=== PATIENT | female | born 1990 | race Caucasian/White ===

== ENCOUNTER 2021-11-22 01:47 | Emergency (ER) | payer OTHER, BC, SELFPAY ==
[2021-11-22 02:02] VITALS: BP 137/76; PULSE 105; RESP 18; TEMP 37.2; O2SAT 100
[2021-11-22 02:34] LABS: Add Urine Microscopic? YES; Appearance Urine Slightly Cloudy (Clear); Bilirubin Urine Negative (Negative); Blood Urine 3+ (Negative); Color Urine Light Yellow (Yellow); Glucose Urine UA Negative (Negative); Ketones Urine Negative (Negative); Leukocyte Esterase Ur 2+ LEU/UL (Negative); Nitrate Urine Negative (Negative); Protein Urine 1+ mg/dL (Negative); Urobilinogen Urine 0.2 mg/dL (<2.0); pH Urine 6.5 (5.0-9.0)
[2021-11-22 02:49] LABS: Bacteria Urine Trace /hpf; Squamous Epithelial Cell Urine Rare /hpf (Few); WBC Clumps Urine Present /HPF; WBC Urine >75 /hpf
--- NOTE | 2021-11-22 03:55 | ED.FEMALEGU ---
HPI - Female Genitourinary General Chief complaint: Urogenital-Female Stated complaint: uti symptoms Time Seen by Provider: 11/22/21 03:34 History of Present Illness HPI Narrative: 31-year-old female presents with 2 days some lower back pressure and suprapubic pressure slightly consistent with her past UTI symptoms, and now without any pain but with burning when she urinates and increased frequency, no nausea or vomiting. Related Data Allergies Allergy/AdvReac Type Severity Reaction Status Date / Time No Known Allergies Allergy Unknown Unverified 11/22/21 02:05 [facility], [facility] Past Medical History Medical History (Updated 11/22/21 @ 06:55 by Angi Callahan MD) UTI (urinary tract infection) Surgical History Surgical History (Updated 11/22/21 @ 06:55 by Angi Callahan MD) No significant past surgical history Exam Narrative: EXAMINATION OF ORGAN SYSTEMS/BODY AREAS: Constitutional: Vital signs per nursing GENERAL:[No acute distress, non-toxic appearing.] HEAD: Normal with no signs of head trauma. EYES: EOMI, conjunctiva normal ENT: Hearing grossly intact LUNGS: Nonlabored breathing. HEART: [Regular rate and rhythm] ABD: [Soft], minimally [tender to palpation] suprapubic, no CVA tenderness EXT: Normal range of motion SKIN: [No rashes or lesions.] NEURO: [Alert and oriented x 3. No gross focal sensory or strength deficits.] PSYCH: Normal affect Course Vital Signs Vital signs: Vital Signs Temperature 98.9 F 11/22/21 02:02 Pulse Rate 105 H 11/22/21 02:02 Respiratory Rate 18 11/22/21 02:02 Blood Pressure 137/76 11/22/21 02:02 Pulse Oximetry 100 11/22/21 02:02 Oxygen Delivery Room Air 11/22/21 02:02 Temperature 98.9 F 11/22/21 02:02 Pulse Rate 94 11/22/21 04:15 Respiratory Rate 18 11/22/21 04:15 Blood Pressure 125/90 11/22/21 04:15 Pulse Oximetry 98 11/22/21 04:15 Oxygen Delivery Room Air 11/22/21 02:02 MDM - Female Genitourinary MDM Narrative Medical decision making narrative: 31-year-old female patient presenting with suprapubic pain and urinary symptoms consistent with UTI. Urinalysis is obtained and positive for signs of infection. Urine culture sent. Patient started on Bactrim and strongly advised to return for any increasing or worsening pain, fevers or vomiting. They expressed understanding of instructions and is discharged in stable condition. Lab Data Labs: Lab Results 11/22/21 Range/Units 02:29 Urine Color Light yellow (Yellow) Urine Appearance Slightly cloudy (Clear) Urine pH 6.5 (5.0-9.0) Ur Specific [place] 1.010 (1.001-1.035) Urine Protein 1+ H (Negative) mg/dL Urine Glucose (UA) Negative (Negative) mg/dL Urine Ketones Negative (Negative) mg/dL Ur Blood (Man) 3+ H (Negative) Urine Nitrate Negative (Negative) Urine Bilirubin Negative (Negative) Urine Urobilinogen 0.2 (<2.0) mg/dL Leukocyte Esterase Rfl 2+ H (Negative) NATE/UL Urine RBC 11-20 H (0-2) /hpf Urine WBC >75 H /hpf Urine WBC Clumps Present H (None) /HPF Ur Squamous Epith Cells Rare (Few) /hpf Urine Bacteria Trace /hpf Urine Characteristics Cloudy Discharge Plan Discharge Clinical Impression: Urinary tract infection Patient Disposition: Home, Self-Care Condition: Stable Instructions: Antibiotic Form, Urinary Tract Infection in Women (ED), Dysuria (ED) Additional Instructions: Please take the antibiotics as prescribed; come back if your symptoms are not better after 2 days of antibiotics or if you can't keep anything down, or if you have any new pain or fevers. Followup with your doctor in 2 days. Prescriptions: New sulfamethoxazole-trimethoprim [Bactrim DS] 800-160 mg tablet 1 tablet PO Q12H Qty: 14 0RF ondansetron 4 mg tablet,disintegrating 4 mg PO Q8H PRN (Reason: nausea and vomiting) Qty: 10 0RF Follow-up/Referrals: Jeff Lo
[2021-11-22] MEDS: ONDANSETRON HCL ODT 4 MG TABLET PO (04:10)
[2021-11-22] MEDS: SULFAMETHOXAZOLE/TRIMETHOPRIM 800/160 MG DS TABLET 1 TAB PO (04:11)
[2021-11-22 04:15] VITALS: BP 125/90; PULSE 94; RESP 18; O2SAT 98
== END 2021-11-22 04:15 | disposition home or self-care (01) ==
PROVIDERS: Emergency Provider Emergency Medicine; PCP Family Medicine Adolescent Medicine
DX: N39.0 Urinary tract infection, site not specified (principal)
CPT/HCPCS: 81001; 87077; 87086; 87186; 99283; A9270

== ENCOUNTER 2023-07-11 23:16 | Emergency (ER) | payer OTHER, BC, SELFPAY ==
[2023-07-11 23:19] VITALS: BP 120/79; PULSE 67; RESP 18; TEMP 36.6; O2SAT 100
--- NOTE | 2023-07-12 00:06 | ED.SKABFB ---
HPI - Skin/Abscess/Foreign Bdy General Chief complaint: Skin/Abscess/Foreign Body Stated complaint: Right eye swelling Time Seen by Provider: 07/11/23 23:43 Source: patient Mode of arrival: ambulatory Limitations: no limitations History of Present Illness HPI narrative: This is a 33-year-old female that presents to the emergency department for a possible allergic reaction. Reports she was at her son's baseball game yesterday. She believes she got stung by something. When she got home she noted that her eyelid was itchy. Reports worsening swelling. She tried to do a telehealth visit and they told her to come to the ER. Denies fevers, vision changes, abnormal drainage. Related Data Allergies Allergy/AdvReac Type Severity Reaction Status Date / Time No Known Allergies Allergy Unknown Verified 07/11/23 23:21 Review of Systems Review of Systems: CONSTITUTIONAL: Denies fever EYES: Denies visual changes, redness, or discharge. All systems reviewed & are unremarkable except as noted in HPI and below PMFSH Past Medical History Medical History (Updated 07/12/23 @ 00:07 by Melinda Contreras PA-C) UTI (urinary tract infection) Surgical History Surgical History (Updated 11/22/21 @ 06:55 by Angi Callahan MD) No significant past surgical history Social History Social History (Updated 07/12/23 @ 00:14 by Melinda Contreras PA-C) Smoking status: Never smoker Exam Narrative: GENERAL: Well-appearing, well-nourished, and in no acute distress. HEAD: Normocephalic, atraumatic. EYES: PERRLA and EOMI. No conjunctival injection or abnormal drainage. Edema with mild redness to the right lower eyelid EXTREMITIES: Normal range of motion. No edema. SKIN: Warm, dry, no rash. NEURO: No focal deficits. Alert and oriented x3. PSYCH: Normal mood and affect Course Course Emergency Course: Patient agrees with plan of care Vital Signs Vital signs: Vital Signs Temperature 97.8 F 07/11/23 23:19 Pulse Rate 67 07/11/23 23:19 Respiratory Rate 18 07/11/23 23:19 Blood Pressure 120/79 07/11/23 23:19 Pulse Oximetry 100 07/11/23 23:19 Oxygen Delivery Room Air 07/11/23 23:19 Temperature 97.8 F 07/11/23 23:19 Pulse Rate 67 07/11/23 23:19 Respiratory Rate 18 07/11/23 23:19 Blood Pressure 120/79 07/11/23 23:19 Pulse Oximetry 100 07/11/23 23:19 Oxygen Delivery Room Air 07/11/23 23:19 MDM - Skin/Abscess/Foreign Bdy MDM Narrative Medical decision making narrative: Patient presents to the ER for right eyelid swelling and itching. Denies any fevers or visual changes. Her exam and symptoms seem consistent with allergic reaction. Will be started on antihistamines and steroid taper. She was given warnings to return to the ER Differential Diagnosis Differential diagnosis: Likely urticaria, insect bites and contact dermatitis Critical Care Time Critical Care Time Critical Care Time: No Discharge Plan Discharge Clinical Impression: Allergic reaction Qualifiers: Encounter type: initial encounter Qualified Code(s): T78.40XA - Allergy, unspecified, initial encounter Patient Disposition: Home, Self-Care Condition: Stable Instructions: General Allergic Reaction (ED) Additional Instructions: Return to the emergency department if you experience fever, vision changes, abnormal drainage from your eye, or any other symptoms that are concerning to you Take a Pepcid and Zyrtec daily. Take steroid taper as prescribed. Benadryl as needed for severe itching. Apply allergy eye drops daily Follow-up with your primary care doctor Prescriptions: New olopatadine [Pataday Once Daily Relief] 0.2 % drops 1 drp RIGHT EYE DAILY Qty: 2.5 0RF methylprednisolone 4 mg tablets,dose pack See Rx Instructions .ROUTE .COMPLEX Qty: 21 0RF Rx Instructions: orally per package directions Follow-up/Referrals: Jeff Lo MD [Primary Care Provider] -
[2023-07-12] MEDS: LORATADINE 10 MG TABLET PO (00:19)
[2023-07-12] MEDS: FAMOTIDINE 20 MG TABLET PO (00:19)
[2023-07-12 00:40] VITALS: PULSE 68; RESP 16; O2SAT 98
== END 2023-07-12 00:41 | disposition home or self-care (01) ==
PROVIDERS: Emergency Provider Physician Assistant; PCP Family Medicine Adolescent Medicine
DX: T78.40XA Allergy, unspecified, initial encounter (principal)
CPT/HCPCS: 99283; A9270

== ENCOUNTER 2023-09-08 10:42 | Outpatient (CLI) | payer OTHER, BC, SELFPAY ==
--- NOTE | ~2023-09-08 | CT_ITS ---
EXAMINATION: CT IAC/mastoids BI wo con DATE: 09/08/2023 11:01 INDICATION: Left external ear nodule TECHNIQUE: Computed tomography (CT) of the temporal bones was performed without intravenous contrast. The dose-length product was 346.95 mGy-cm. COMPARISON: None FINDINGS: Visualized portion of the brain is unremarkable. Orbits and paranasal sinuses are normal. V isualized portion of the bilateral parotid glands are normal. The bilateral ears appear normal. Nonsp ecific 1.8 x 0.8 x 0.3 cm soft tissue density posterior to the left ureter potentially a lymph node. RIGHT TEMPORAL BONE: Mastoid air cells and middle ear cavities including Prussak's space are clear. The external auditory canal, tympanic membrane, scutum, ossicles, oval window, cochlea, vestibule, semicircular canals, cou rse of the facial nerve, internal auditory canal and vestibular aqueduct all appear normal. LEFT TEMPORAL BONE: Mastoid air cells and middle ear cavities including Prussak's space are clear. The external auditory canal, tympanic membrane, scutum, ossicles, oval window, cochlea, vestibule, semicircular canals, cou rse of the facial nerve, internal auditory canal and vestibular aqueduct all appear normal. IMPRESSION: 1. Demonstrate asymmetric 18 x 8 x 3 mm soft tissue density in the subcutaneous tissues overlying the left mastoid and posterior to the ear potentially representing a retroauricular lymph node which rem ains within normal limits. 2. Otherwise normal CT of the bilateral temporal bones. Reviewed, dictated and finalized at location [facility]. IMPRESSION: 1. Demonstrate asymmetric 18 x 8 x 3 mm soft tissue density in the subcutaneous tissues overlying the left mastoid and posterior to the ear potentially repres enting a retroauricular lymph node which remains within normal limits. 2. Otherwise normal CT of the bilateral temporal bones.
== END 2023-09-08 10:43 ==
LOC: GOSHIMG 10:43
PROVIDERS: PCP Nurse Practitioner; Visit Provider Otolaryngology
DX: H61.892 Other specified disorders of left external ear (principal)
CPT/HCPCS: 70480

== ENCOUNTER 2023-10-21 00:53 | Day surgery (SDC) | payer OTHER, BC, SELFPAY ==
[2023-09-30 14:35] VITALS: BMI 29.2
[2023-10-21 12:18] VITALS: BP 125/79; PULSE 87; RESP 18; TEMP 36; O2SAT 100
[2023-10-21 12:23] LABS: BEDSIDEPREGUCG Negative
[2023-10-21] MEDS: LACTATED RINGERS 1,000 ML 150 ML IV CONT (12:29)
--- NOTE | 2023-10-21 13:02 | WPDANESEPPF ---
Anes - Initial Pre Proc Eval Procedure: Operation Date: 10/21/23 13:30 Proposed Procedures p Esophagogastroduodenoscopy & Colonoscopy - Clemente Okeefe MD Date/Time: 10/21/23 13:02 Surgeon: Clemente Okeefe MD Pre Op Diagnosis: Other fecal abnormalities, Diarrhea Patient Data Age: 33 Gender: F Height: 1.68 m Weight: 80.6 kg Last Vital Signs Temp 96.8 F L 10/21/23 12:18 Pulse 87 10/21/23 12:18 Resp 18 10/21/23 12:18 BP 125/79 10/21/23 12:18 Pulse Ox 100 10/21/23 12:18 O2 Del Method Room Air 10/21/23 12:18 Allergies Allergy/AdvReac Type Severity Reaction Status Date / Time No Known Allergies Allergy Unknown Verified 10/21/23 12:17 Home Medications Medication Instructions Recorded Confirmed Type cholecalciferol (vitamin D3) 10 10 mcg PO DAILY 09/12/23 10/21/23 History mcg (400 unit) capsule Laboratory Tests 10/21/23 12:18 POC Urine HCG, Qual Negative Patient hx anesthesia problems: none Family hx anesthesia problems: none Results Review: All pre-operative results and documents have been reviewed as part of the pre-operative evaluation. [facility] Past Medical History Medical History UTI (urinary tract infection) Surgical History Surgical History No significant past surgical history Social History Social History Smoking status: Never smoker Alcohol intake: current Alcohol use details: 2 per month Living arrangements: with family Spiritual care concerns: No Anes - Eval Final PreProcedure Day of Procedure 10/21/23 13:02 Patient weight: overweight Heart: regular rate and rhythm Lungs: clear to auscultation Airway: Mallampati scale class II Neurological: alert and oriented Last oral intake: >/= 8 hours ASA classification: II Emergent: no Anesthetic plan: proceed Anesthesia type and monitoring: general GIVS and standard monitoring Results Review: All pre-operative results and documents have been reviewed as part of the pre-operative evaluation. Informed Consent: The patient's anesthetic plan and its attendant risks and benefits were discussed with the patient/family/POA. Questions were solicited and answers provided to the satisfaction of the patient/family/POA.
--- NOTE | 2023-10-21 13:19 | P.HP_ITS ---
History of Present Illness History of Present Illness Consent: Risks, benefits, and alternatives have been discussed and questions answered. Patient agrees to proceed with procedure. Chief complaint: Other fecal abnormalities, Diarrhea Narrative: Dorinda Rubio is a 33 year old female here for first egd and colonoscopy, intermittent diarrhea Review of Systems Review of Systems: All systems reviewed & are unremarkable except as noted in HPI and below PMFSH Past Medical History Medical History UTI (urinary tract infection) Surgical History Surgical History No significant past surgical history Social History Social History Smoking status: Never smoker Alcohol intake: current Alcohol use details: 2 per month Living arrangements: with family Spiritual care concerns: No Meds Home Medications and Allergies Home Medications Medication Instructions Recorded Confirmed Type cholecalciferol (vitamin D3) 10 10 mcg PO DAILY 09/12/23 10/21/23 History mcg (400 unit) capsule Allergies Allergy/AdvReac Type Severity Reaction Status Date / Time No Known Allergies Allergy Unknown Verified 10/21/23 12:17 Vital Signs Vital Signs - 24 hr 10/21/23 12:18 Temperature 96.8 F L Pulse Rate 87 Respiratory Rate 18 Blood Pressure 125/79 Pulse Oximetry 100 Oxygen Delivery Room Air Exam Const: General: comfortable and no acute distress HENMT: Face/Nose/Sinus: Normal nares present Eyes: General: appearance normal, both eyes and all related structures Neck: Neck: no JVD Resp: Auscultation: clear to auscultation bilaterally Cardio: Rate: regular rate Rhythm: regular rhythm GI: Inspection: non-distended GI Palp: Yes Soft to palpation Skin: General skin exam: normal color Neuro: General: gait normal Speech: normal speech Extrem: General: normal to inspection Psych: Mental Status: mental status grossly normal Assessment and Plan Assessment and plan (1) Diarrhea: Qualifiers: Diarrhea type: unspecified type Qualified Code(s): R19.7 - Diarrhea, u nspecified Code(s): R19.7 - Diarrhea, unspecified Status: Acute Assessment and Plan: egd and colonoscopy, will check for celiac, microscopic colitis
--- NOTE | 2023-10-21 13:39 | SUR.OPER ---
EGD: [id number] COLON: Start 3601
[2023-10-21 13:47] VITALS: BP 112/64; PULSE 77; RESP 18; O2SAT 100
[2023-10-21 13:57] VITALS: BP 102/75; PULSE 71; RESP 18; O2SAT 100
[2023-10-21 14:07] VITALS: BP 100/69; PULSE 73; RESP 18; O2SAT 100
== END 2023-10-21 14:25 | disposition home or self-care (01) ==
PROVIDERS: Anesthesiology; PCP Nurse Practitioner; Referring Provider Nurse Practitioner Family; Visit Provider Internal Medicine Gastroenterology
PROC: 0DJ08ZZ Inspection of Upper Intestinal Tract, Via Natural or Artificial Opening Endoscopic (ICD-10-PCS; CPT 43235; principal; 2023-10-21 13:30)
DX: D12.0 Benign neoplasm of cecum (principal); K29.80 Duodenitis without bleeding; K29.50 Unspecified chronic gastritis without bleeding
CPT/HCPCS: 45380; 43239; 88305; J2704; J7120

== ENCOUNTER 2024-05-28 11:25 | Outpatient (CLI) | payer OTHER, BC, SELFPAY ==
--- NOTE | ~2024-05-28 | US_ITS ---
Pelvic ultrasound. Clinical History: Abnormal uterine bleeding Technique: Realtime transabdominal scanning of the pelvis was performed. Color flow Doppler and Doppl er spectral analysis were performed. Findings: The uterus is anteverted, and measures 6.4 x 3.6 x 4.3 cm. The endometrial stripe has a th ickness of 8 mm. No focal mass is identified. The right ovary measures 4.6 x 1.7 x 2.3 cm. No significant right ovarian or adnexal mass is seen. The left ovary measures 3.2 x 2.7 x 3.1 cm. No significant left ovarian or adnexal mass is seen. Vascular flow present in both ovaries on Doppler spectral analysis. There is no evidence of free fluid in the cul de sac. Impression: Unremarkable pelvic ultrasound. Reviewed, dictated and finalized at [facility]. Impression: Unremarkable pelvic ultrasound.
== END 2024-05-28 11:26 | disposition home or self-care (01) ==
LOC: MICIMG 11:26
PROVIDERS: PCP Nurse Practitioner; Visit Provider Obstetrics & Gynecology Gynecology
DX: N93.9 Abnormal uterine and vaginal bleeding, unspecified (principal)
CPT/HCPCS: 76856

== ENCOUNTER 2024-06-14 13:19 | Emergency (ER) | payer OTHER, BC, SELFPAY ==
[2024-06-14] VITALS (18 sets, daily range): BP systolic 104–130; BP diastolic 69–79; PULSE 73–109; RESP 12–19; TEMP 36.6–36.8; O2SAT 100
--- NOTE | ~2024-06-14 | XR_ITS ---
XR chest 2V Ordering provider: Deonte Gant MD History: 34 years Female with . chest pain, constant pressure . Comparison: None. FINDINGS: MEDIASTINUM: The cardiac silhouette is not enlarged. LUNGS: No infiltrates, effusions or pneumothorax. OTHER: No free air under the diaphragm. IMPRESSION: No acute cardiopulmonary pathology. Reviewed, dictated and finalized at location A.
--- NOTE | 2024-06-14 13:19 | ECG_ITS ---
Test Date: 2024-06-14 13:28:23 Measurements Intervals [place] Rate: 100 P: 48 [place]: 152 QRS: 9 QRSD: 74 T: -14 QT: 305 QTc: 394 Interpretive Statements SINUS TACHYCARDIA POSSIBLE LEFT ATRIAL ENLARGEMENT ST-T WAVE ABNORMALITY IN INFERIOR LEADS- CONSIDER ISCHEMIA BASELINE ARTIFACT- I, II, AVR, AVL ABNORMAL ECG No previous ECG available for comparison Electronically Signed On 06-14-2024 13:48:17 CDT by Ignacio Garza D.O.
--- NOTE | 2024-06-14 13:30 | ED_ITS ---
HPI - Chest Pain General Chief Complaint: Chest Pain <LAZARO Henry Last Filed: 06/15/24 09:15> Stated Complaint: chest pain since friday <LAZARO Henry Last Filed: 06/15/24 09:15> Time Seen by Provider: 06/14/24 13:30 <LAZARO Henry Last Filed: 06/15/24 09:15> Focused HPI: This is a 34 year old female that presents to the ER for chest pressure. Ongoing since Friday. Reports she recently started phentermine for weight loss. Denies fever, cough, shortness of breath. GENERAL: Well-appearing, well-nourished, and in no acute distress. HEAD: Normocephalic, atraumatic. CHEST: Clear to auscultation. ?No respiratory distress. HEART: Regular rate and rhythm.? NEURO: ?Alert and oriented x3. Patient screened in triage and initial orders placed.? ?Additional care and disposition to be based upon?diagnostic testing and treatment. <LAZARO Henry Last Filed: 06/15/24 09:15> Focused HPI: This is a 34 year old female that presents to the ER for chest pressure. Ongoing since Friday. Reports she recently started phentermine for weight loss. Denies fever, cough, shortness of breath. GENERAL: Well-appearing, well-nourished, and in no acute distress. HEAD: Normocephalic, atraumatic. CHEST: Clear to auscultation. ?No respiratory distress. HEART: Regular rate and rhythm.? NEURO: ?Alert and oriented x3. Patient screened in triage and initial orders placed.? ?Additional care and disposition to be based upon?diagnostic testing and treatment. <LAZARO Yung Last Filed: 06/15/24 01:57> Source: patient <LAZARO Yung Last Filed: 06/15/24 01:57> Mode of arrival: ambulatory <LAZARO Yung Last Filed: 06/15/24 01:57> Limitations: no limitations <LAZARO Yung Last Filed: 06/15/24 01:57> History of Present Illness HPI narrative: Agree with above HPI. Reports pain has been fairly constant over the past few days. Denies aggravating or alleviating factors. Has not taken anything for the pain. Reports she has been constipated since starting phentermine. She reports her last bowel movement was . Denies abdominal pain, nausea, vomiting. Denies shortness of breath. Denies pain or swelling in legs. <Lizet Valderrama PA-C - Last Filed: 06/15/24 01:57> Related Data Home Medications: Home Medications ?Medication ?Instructions ?Recorded ?Confirmed ?Last Taken ?Type cholecalciferol (vitamin D3) 10 10 mcg PO DAILY 09/12/23 10/21/23 10/20/23 History mcg (400 unit) capsule <Melinda Contreras PA-C - Last Filed: 06/15/24 09:15> Allergies/Adverse Reactions: Allergies Allergy/AdvReac Type Severity Reaction Status Date / Time No Known Allergies Allergy Unknown Verified 10/21/23 12:17 <Melinda Contreras PA-C - Last Filed: 06/15/24 09:15> Review of Systems 2 Review of Systems: All systems reviewed & are unremarkable except as noted in HPI. <Lizet Valderrama PA-C - Last Filed: 06/15/24 01:57> All systems reviewed & are unremarkable except as noted in HPI and below < Lizet Valderrama PA-C - Last Filed: 06/15/24 01:57> [facility] Past Medical History Medical History: Medical History UTI (urinary tract infection) <Melinda Contreras PA-C - Last Filed: 06/15/24 09:15> Surgical History Surgical History: Surgical History No significant past surgical history <Melinda Contreras PA-C - Last Filed: 06/15/24 09:15> Social History Social History: Social History Smoking status: Never smoker Alcohol intake: current Alcohol use details: 2 per month Living arrangements: with family Spiritual care concerns: No <Melinda Contreras PA-C - Last Filed: 06/15/24 09:15> Exam 2 Narrative: GENERAL: Well appearing, well-nourished, non-toxic, in no acute distress. HEAD: Normocephalic, atraumatic. RESPIRATORY: Airway patent, respirations nonlabored. Clear to auscultation bilaterally, no rales, rhonchi, wheezing. No focal lung sounds. CARDIOVASCULAR: Borderline tachycardic with regular rhythm without murmurs, rubs, or gallops. ABDOMINAL: Soft, nontender, nondistended. Normoactive BS. MUSCULOSKELETAL: Moves all extremities. No gross deformities. No calf tenderness. No peripheral edema. SKIN: Warm, dry, normal color. NEURO: A&O X3. Speech clear. PSYCHIATRIC: Appropriate mood and affect. Normal interaction. <Lizet Valderrama PA-C - Last Filed: 06/15/24 01:57> Course Vital Signs Vital signs: Vital Signs Temperature 98.2 F 06/14/24 13:22 Pulse Rate 109 H 06/14/24 13:22 Respiratory Rate 17 06/14/24 13:22 Blood Pressure 130/79 06/14/24 13:22 Pulse Oximetry 100 06/14/24 13:22 Oxygen Delivery Room Air 06/14/24 13:22 Temperature 97.8 F 06/14/24 19:43 Pulse Rate 80 06/14/24 19:43 Respiratory Rate 17 06/14/24 19:43 Blood Pressure 108/72 06/14/24 19:43 Pulse Oximetry 100 06/14/24 19:43 Oxygen Delivery Room Air 06/14/24 18:56 <Melinda Contreras PA-C - Last Filed: 06/15/24 09:15> Vital Signs Temperature 98.2 F 06/14/24 13:22 Pulse Rate 109 H 06/14/24 13:22 Respiratory Rate 17 06/14/24 13:22 Blood Pressure 130/79 06/14/24 13:22 Pulse Oximetry 100 06/14/24 13:22 Oxygen Delivery Room Air 06/14/24 13:22 Temperature 97.8 F 06/14/24 19:43 Pulse Rate 80 06/14/24 19:43 Respiratory Rate 17 06/14/24 19:43 Blood Pressure 108/72 06/14/24 19:43 Pulse Oximetry 100 06/14/24 19:43 Oxygen Delivery Room Air 06/14/24 18:56 <Lizet Valderrama PA-C - Last Filed: 06/15/24 01:57> MDM - Chest Pain MDM Narrative Medical decision making narrative: Patient presented to ED with several day history of chest pain/pressure. Patient recently started on phentermine for weight loss. Patient initially mildly tachycardic upon arrival. Vitals otherwise stable. EKG with some nonspecific ST changes, no acute ST elevation or depression. Baseline troponin is undetectable. Patient reports pain has been ongoing for the past few days, low suspicion for ACS. Patient denying any SOB, pleuritic pain, pain or swelling in legs. No evidence of DVT on exam. Has been slightly tachycardic few times throughout ED stay, but resolves w/o intervention. D-dimer WNL. Low suspicion for PE. No significant risk factors. Otherwise low risk Well's score. Basic laboratory studies are otherwise unremarkable. Chest x-ray is clear. 3hr trop also undetectable. Discussed lab and imaging findings, overall reassuring workup with patient and family. Feel she is safe for discharge home at this time with close outpatient follow-up. Discussed possibility of medication side effect, musculoskeletal etiology, anxiety. Advised she can continue Tylenol/ibuprofen as needed for pain. Recommended close follow-up with PCP for further evaluation. Given strict return precautions. She agrees with plan, feels comfortable going home. Discharged in stable condition. <Lizet Valderrama PA-C - Last Filed: 06/15/24 01:57> Medical Records Data Attestation: I reviewed the patient's medical records. <Lizet Valderrama PA-C - Last Filed: 06/15/24 01:57> Lab Data Attestation: I reviewed the patient's lab results. <Lizet Valderrama PA-C - Last Filed: 06/15/24 01:57> Result diagrams: 06/14/24 15:39 06/14/24 15:40 <Melinda Contreras PA-C - Last Filed: 06/15/24 09:15> Labs: Lab Results 06/14/24 06/14/24 06/14/24 Range/Units 15:39 15:40 18:31 WBC 9.6 (4.5-10.0) K/mm3 RBC 4.55 (4.2-5.4) M/mm3 Hgb 14.0 (12.0-15.0) g/dL Hct 41.9 (37.0-47.0) % MCV 92.1 (80-100) fl MCH 30.8 (26-34) pg MCHC 33.4 (32-36) g/dl RDW 12.6 (11.5-14.5) % Plt Count 249 (150-375) k/mm3 MPV 10.8 H (7.4-10.4) fl Immature Gran % (Auto) 0.4 (0-0.5) % Neut % (Auto) 60.9 (45.5-73.1) % Lymph % (Auto) 30.4 (18.3-44.2) % Sandoval % (Auto) 7.3 (2.6-8.5) % Eos % (Auto) 0.3 (0-4.4) % Baso % (Auto) 0.7 (0.2-1.2) % Lymph # (Auto) 2.92 (0.9-3.2) K/mm3 Sandoval # (Auto) 0.7 H (0.1-0.6) K/mm3 Eos # (Auto) 0.0 (0-0.3) K/mm3 Baso # (Auto) 0.1 (0.0-0.1) K/mm3 Abs Immat Gran (auto) 0.04 H (0.00-0.031) K/mm3 Absolute Neuts (auto) 5.8 (1.3-6.7) K/mm3 Absolute Nucleated RBC 0.000 (0.0-0.012) K/mm3 Nucleated RBC % 0.0 (0.0-0.2) % PT 14.0 (11.1-14.7) Seconds INR 1.1 APTT 30.2 (22.3-36.8) Seconds D-Dimer 0.31 (<0.48) ug/mL Sodium 138 (137-145) mmol/L Potassium 4.0 (3.4-5.0) mmol/L Chloride 105 (98-107) mmol/L Carbon Dioxide 22 (22-30) mmol/L Anion Gap 11 (4-12) mmol/L BUN 13 (7-17) mg/dL Creatinine 0.74 (0.7-1.0) mg/dL Estim Creat Clear Calc 98 ml/min Estimated GFR > 60 (59 - ) Glucose 82 (65-110) mg/dL Calcium 9.6 (8.4-10.2) mg/dL Total Bilirubin 0.6 (0.2-1.3) mg/dL AST 14 (14-36) U/L ALT 18 (6-35) U/L Alkaline Phosphatase 55 (38-126) U/L Troponin I < 0.012 < 0.012 (0.000-0.034) ng/mL Total Protein 8.0 (6.3-8.2) g/dL Albumin 4.6 (3.5-5.1) g/dL Lipase 70 (23-300) U/L <Melinda Contreras PA-C - Last Filed: 06/15/24 09:15> Lab Results 06/14/24 06/14/24 06/14/24 Range/Units 15:39 15:40 18:31 WBC 9.6 (4.5-10.0) K/mm3 RBC 4.55 (4.2-5.4) M/mm3 Hgb 14.0 (12.0-15.0) g/dL Hct 41.9 (37.0-47.0) % MCV 92.1 (80-100) fl MCH 30.8 (26-34) pg MCHC 33.4 (32-36) g/dl RDW 12.6 (11.5-14.5) % Plt Count 249 (150-375) k/mm3 MPV 10.8 H (7.4-10.4) fl Immature Gran % (Auto) 0.4 (0-0.5) % Neut % (Auto) 60.9 (45.5-73.1) % Lymph % (Auto) 30.4 (18.3-44.2) % Sandoval % (Auto) 7.3 (2.6-8.5) % Eos % (Auto) 0.3 (0-4.4) % Baso % (Auto) 0.7 (0.2-1.2) % Lymph # (Auto) 2.92 (0.9-3.2) K/mm3 Sandoval # (Auto) 0.7 H (0.1-0.6) K/mm3 Eos # (Auto) 0.0 (0-0.3) K/mm3 Baso # (Auto) 0.1 (0.0-0.1) K/mm3 Abs Immat Gran (auto) 0.04 H (0.00-0.031) K/mm3 Absolute Neuts (auto) 5.8 (1.3-6.7) K/mm3 Absolute Nucleated RBC 0.000 (0.0-0.012) K/mm3 Nucleated RBC % 0.0 (0.0-0.2) % PT 14.0 (11.1-14.7) Seconds INR 1.1 APTT 30.2 (22.3-36.8) Seconds D-Dimer 0.31 (<0.48) ug/mL Sodium 138 (137-145) mmol/L Potassium 4.0 (3.4-5.0) mmol/L Chloride 105 (98-107) mmol/L Carbon Dioxide 22 (22-30) mmol/L Anion Gap 11 (4-12) mmol/L BUN 13 (7-17) mg/dL Creatinine 0.74 (0.7-1.0) mg/dL Estim Creat Clear Calc 98 ml/min Estimated GFR > 60 (59 - ) Glucose 82 (65-110) mg/dL Calcium 9.6 (8.4-10.2) mg/dL Total Bilirubin 0.6 (0.2-1.3) mg/dL AST 14 (14-36) U/L ALT 18 (6-35) U/L Alkaline Phosphatase 55 (38-126) U/L Troponin I < 0.012 < 0.012 (0.000-0.034) ng/mL Total Protein 8.0 (6.3-8.2) g/dL Albumin 4.6 (3.5-5.1) g/dL Lipase 70 (23-300) U/L <Lizet Valderrama PA-C - Last Filed: 06/15/24 01:57> Imaging Data Attestation: I personally reviewed and interpreted this imaging study as follows: < Lizet Valderrama PA-C - Last Filed: 06/15/24 01:57> Radiologist's impression: ITS Impressions Chest X-Ray 06/14/24 13:52 IMPRESSION: No acute cardiopulmonary pathology. <Lizet Valderrama PA-C - Last Filed: 06/15/24 01:57> ECG Data EKG #1: Attestation: I personally reviewed and interpreted this ECG as follows: <Lizet Valderrama PA-C - Last Filed: 06/15/24 01:57> ECG completion date: 06/14/24 <LAZARO Yung Last Filed: 06/15/24 01:57> ECG completion time: 13:28 <LAZARO Yung Last Filed: 06/15/24 01:57> EKG Interpretation: tachycardia (100), sinus rhythm and non-specific ST changes <LAZARO Yung Last Filed: 06/15/24 01:57> Critical Care Time Critical Care Time Critical Care Time: No <Melinda Contreras PA-C - Last Filed: 06/15/24 09:15> Discharge Plan Discharge Clinical Impression: Atypical chest pain <LAZARO Henry Last Filed: 06/15/24 09:15> Patient Disposition: Home <LAZARO Henry Last Filed: 06/15/24 09:15> Condition: Stable <LAZARO Henry Last Filed: 06/15/24 09:15> Instructions: Antibiotic Form, Chest Pain (ED), Musculoskeletal Pain (ED), Chest Wall Pain (ED) <LAZARO Henry Last Filed: 06/15/24 09:15> Additional Instructions: Your workup here was reassuring against a cardiac cause of your chest pain. Continue to monitor symptoms. Continue Tylenol/ibuprofen as needed for pain. Follow-up with your primary care doctor for further evaluation. Return to the ED if you experience worsening or severe pain, difficulty breathing, shortness of breath, pain or swelling in your legs, unable to keep down food or drink, or any other symptoms of concern. <Melinda Contreras PA-C - Last Filed: 06/15/24 09:15> Patient Language: South African <Melinda Contreras PA-C - Last Filed: 06/15/24 09:15> Prescriptions: No Action cholecalciferol (vitamin D3) 10 mcg (400 unit) capsule 10 mcg PO DAILY <Melinda Contreras PA-C - Last Filed: 06/15/24 09:15> Follow-up/Referrals: Silvia,Payal Madden APRN [Primary Care Provider] - <LAZARO Henry Last Filed: 06/15/24 09:15> Time of Disposition: 19:10 <Melinda Contreras PA-C - Last Filed: 06/15/24 09:15> 19:10 <Lizet Valderrama PA-C - Last Filed: 06/15/24 01:57> Quality HEART score for chest pain patients History: slightly suspicious <LAZARO Yung Last Filed: 06/15/24 01:57> ECG: non specific repolarization disturbance/LBTB/PM <LAWANDA Yung - Last Filed: 06/15/24 01:57> Age: < or = to 45 years <Lizet Valderrama PA-C - Last Filed: 06/15/24 01:57> Risk factors: no risk factors known <LAZARO Yung Last Filed: 06/15/24 01:57> Troponin: < or = to 1x normal limit <LAZARO Yung Last Filed: 06/15/24 01:57> Heart score: 1 <LAZARO Henry Last Filed: 06/15/24 09:15> 1 <LAZARO Yung Last Filed: 06/15/24 01:57>
--- OUTSIDE RECORDS SUMMARY | 2024-06-14 15:06 | XMS_ITS | Encounter Summary ---
Author Organization [facility] Address [facility] [place] [address] Care Team Providers Care Candy Roller Name Role Phone Osman Bravo MD Primary Care Provider [phone] Encounter Details Date Type Department Care Team (Late st Contact Info) Description 07/25/2023 Modastic Groupehart [facility] [address] [facility] [address] [place], [place] [id number] Payal Vega, INTERIOR DESIGN PROGRAM CHAIR [address] [facility] [address] [place], [place] [id number] labs Social History Tobacco Use Types Packs/Day Years Used Date Smoking Tobacco: Never Passive Smoke Exposure: Never Smokeless Tobacco: Never Alcohol Use Standard Drinks/Week Comments Never 0 (1 standard drink = 0.6 oz pur e alcohol) PHQ-2 Answer Date Recorded Patient Health Questionnaire-2 Score 3 04/30/2023 Comments No Sex and Gender Information Value Date Recorded Sex Assigned at Female 04/12/2024 3:26 PM DIRECT SALES CONSULTANT Legal Sex Female 11:31 AM DIRECT SALES CONSULTANT Gender Identity Female 04/12/2024 3:26 PM DIRECT SALES CONSULTANT Sexual Orientation Straight 04/12/2024 3: 26 PM DIRECT SALES CONSULTANT documented as of this encounter Plan of Treatment Upcoming Encounters Date Type Department Care Team (Late Contact Info) Description 07/02/2024 12:40 PM CDT [facility] [place] [address] [facility] [address] [place], [place] [id number] Osman Bravo MD [address] [place] [address] [address] [place] [address] documented as of this encounter Visit Diagnoses Not on filedocumented in this encounter Additional Health Concerns Infection Onset Date Last Indicated Resolved Time COVID-19 Rule Out 04/12/2024 04/16/2024 04/19/2024 12:32 AM DIRECT SALES CONSULTANT Assessment Noted Time PHQ-9 Depression Total Score: 4 04/30/19 2:57 PM CDT documented as of this encounter Care Teams Candy Roller Relationship Specialty Start Date End Date Osman Bravo MD [address] [facility] [address] [place] [address] PCP - General INTERNAL MEDICINE 04/01/23 documented as of this encounter
--- OUTSIDE RECORDS SUMMARY | 2024-06-14 15:06 | XMS_ITS | Encounter Summary ---
Author Organization [facility] Address [facility] [place] [address] Care Team Providers Care Virtual Recruiter Name Role Phone Osman Bravo MD Primary Care Provider [phone] Encounter Details Date Type Department Care Team (Late st Contact Info) Description 04/19/2024 MyChart Message [facility] [place] [address] [address] [place] [address] Osman Bravo MD [address] [place] [address] [address] [place], [place] [id number] Cough Social History Tobacco Use Types Packs/Day Years Used Date Smoking Tobacco: Never Passive Smoke Exposure: Never Smokeless Tobacco: Never Comments:Counseled by Dr. Delia gary. Alcohol Use Standard Drinks/Week Comments Never 0 (1 standard drink = 0.6 oz pur e alcohol) PHQ-2 Answer Date Recorded Patient Health Questionnaire-2 Score 3 04/30/2023 Comments No Sex and Gender Information Value Date Recorded Sex Assigned at Female 04/12/2024 3:26 PM FIRER LOCOMOTIVE Legal Sex Female 11:31 AM FIRER LOCOMOTIVE Gender Identity Female 04/12/2024 3:26 PM FIRER LOCOMOTIVE Sexual Orientation Straight 04/12/2024 3: 26 PM FIRER LOCOMOTIVE documented as of this encounter Plan of Treatment Upcoming Encounters Date Type Department Care Team (Late st Contact Info) Description 07/02/2024 12:40 PM CDT [facility] [place] [address] [address] [place], [place] [phone] Osman Bravo MD [address] [address] documented as of this encounter Visit Diagnoses Not on filedocumented in this encounter Additional Health Concerns Infection Onset Date Last Indicated Resolved Time COVID-19 Rule Out 04/12/2024 04/16/2024 04/19/2024 12:32 AM FIRER LOCOMOTIVE Assessment Noted Time PHQ-9 Depression Total Score: 4 04/30/19 2:57 PM CDT documented as of this encounter Care Teams Virtual Recruiter Relationship Specialty Start Date End Date Osman Bravo MD [address] [address] PCP - General INTERNAL MEDICINE 04/01/23 documented as of this encounter
--- OUTSIDE RECORDS SUMMARY | 2024-06-14 15:06 | XMS_ITS | Encounter Summary ---
Author Organization [facility] Address [facility] [place] [address] Care Team Providers Care Detective Chief Name Role Phone Osman Bravo MD Primary Care Provider [phone] Encounter Details Date Type Department Care Team (Latest Contact Info) Description 06/02/2024 Results Follow-Up [facility] Medical Group Multispecialty Care - [place] [address] [address] [place] [address] Osman Bravo MD [address] [place] [address] [address] [place], [place] [id number] URINALYSIS AUTO DIP, CBC W/DIFF AUTOMATED, COMPREHENSIVE METABOLIC PANEL, Additional followed-up results: 3 Social History Tobacco Use Types Packs/Day Years Used Date Smoking Tobacco: Never Passive Smoke Exposure: Never Smokeless Tobacco: Never Comments:Counseled by Dr. Delia gary. Alcohol Use Standard Drinks/Week Comments Never 0 (1 standard drink = 0.6 oz pur e alcohol) B1300 Health Literacy Answer Date Recor ded How often do you need to hav e someone help you when you read instructions, pamphlets, or other written material from your doctor or pharmacy? Never 06/02/2024 [facility] Utilities Answer Date Recorded In the past 12 months has e electric, gas, oil, or water company threatened to shut off services in your home? No 06/02/2024 Humiliation, Afraid, Rape, and Kick questionnair e Answer Date Recorded Within the last year, have y ou been afraid of your partner or ex-partner? No 06/02/2024 Within the last year, have y ou been humiliated or emotionally abused in other ways by your partner or ex-partner? No Within the last year, have y ou been kicked, hit, slapped, or otherwise physically hurt by your partner or ex-partner? No 06/02/2024 Within the last year, have y ou been raped or forced to have any kind of sexual activity by your partner or ex-partner? No 06/02/2024 Social Connection and Isolat ion Panel [NHANES] Answer Date Recorded In a typical week, how many times do you talk on the phone with family, friends, or neighbors? Twice a week 06/02/2024 How often do you get togethe r with friends or relatives? More than three times a week 06/02/2024 How often do you attend chur or uatsdin services? More than 4 times per year 06/02/2024 Do you belong to any clubs o r organizations such as orthodoxy groups, unions, fraternal or athletic groups, or school groups? Yes 06/02/2024 How often do you attend meet ings of the clubs or organizations you belong to? More than 4 times per year 06/02/2024 Are you , , di vorced, , never , or living with a partner? 06/02/2024 AUDIT-C Answer Date Recorded Q1: How often do you have a drink containing alcohol? Never 06/02/2024 Q2: How many drinks containi ng alcohol do you have on a typical day when you are drinking? Patient does not drink Q3: How often do you have si x or more drinks on one occasion? Never 06/02/2024 Overall Financial Resource Strain (CARDIA) Answe r Date Recorded How hard is it for you to pa y for the very basics like food, housing, medical care, and heating? Very hard 06/02/2024 PHQ-2 Answer Date Recorded Patient Health Questionnaire-2 Score 1 06/02/2024 [facility] [place] of Occupat ional Health - Occupational Stress Questionnaire Answer Date Recorded Do you feel stress - tense, restless, nervous, or anxious, or unable to sleep at night because your mind is troubled all the time - these days? To some extent 06/02/2024 Exercise Vital Sign Answer Date Recorde d On average, how many days pe r week do you engage in moderate to strenuous exercise (like a brisk walk)? 7 days 06/02/2024 On average, how many minutes do you engage in exercise at this level? 60 min 06/02/2024 Hunger Vital Sign Answer Date Recorded Within the past 12 months, y ou worried that your food would run out before you got the money to buy more. Never true 06/03/19 25 Within the past 12 months, t he food you bought just didn't last and you didn't have money to get more. Never true 06/02/2024 PRAPARE - Transportation Answer Date Re corded In the past 12 months, has l ack of transportation kept you from medical appointments or from getting medications? No 05/18 In the past 12 months, has l ack of transportation kept you from meetings, work, or from getting things needed for daily living? No 06/02/2024 Housing Stability Vital Sign Answer Polo e Recorded In the last 12 months, was t here a time when you were not able to pay the mortgage or rent on time? No 06/02/2024 Number of Times Moved in the Last Year Not on fi le 06/02/2024 At any time in the past 12 m [facility], were you homeless or living in a m[facility]p (including now)? No 06/02/2024 Comments No Sex and Gender Information Value Date Recorded Sex Assigned at Female 04/12/2024 3:26 PM MEDIA ACCOUNT EXECUTIVE Legal Sex Female 11:31 AM MEDIA ACCOUNT EXECUTIVE Gender Identity Female 04/12/2024 3:26 PM MEDIA ACCOUNT EXECUTIVE Sexual Orientation Straight 04/12/2024 3: 26 PM MEDIA ACCOUNT EXECUTIVE documented as of this encounter Functional Status * Audit-C Score Answer Date of Assessment Author Status 0 06/02/2024 12:57 PM Latoya Elaine MA Active * Question Answer Date of Assessment Author Status Q1: How often do you have a drink containing alcohol? Never 06/02/2024 12:57 PM Latoya Elaine MA Active Q2: How many drinks containing alcohol do you have on a typical day when you are drinking? Patient does not drink 06/02/2024 12:57 PM Latoya Elaine MA Active Q3: How often do you have six or more drinks on one occasion? Never 06/02/2024 12:57 PM CDT Latoya Rodriguez MA Active * Over the past 2 weeks, how often have you been bothered by any of the following problems? Question Answer Date of Assessment Author Status Little interest or pleasure in doing things Several days 06/02/2024 1:47 PM CDT Lizbeth Nolan MA Active Feeling down, depressed, or hopeless Not at all 06/02/2024 1:47 PM CDT Lizbeth Nolan MA Active Patient Health Questionnaire-2 Score 1 06/02/2024 1:47 PM CDT Lizbeth Nolan MA Active * Question Answer Date of Assessment Author Status Trouble falling or staying asleep, or sleeping too much Not at all 06/02/2024 1:47 PM CDT Lizbeth Nolan MA Acti ve Feeling tired or having little energy Not at all 06/02/2024 1:47 PM CDT Lizbeth Nolan MA Active Poor appetite or overeating Not at all 06/02/2024 1:47 PM CDT Lizbeth Nolan MA Active Feeling bad about yourself - or that you are a failure or have let yourself or your family down Several days 06/02/2024 1:47 PM CDT Lizbeth Nolan MA Active Trouble concentrating on things, such as reading the newspaper or watching television Not at all 06/02/2024 1:47 PM CDT Lizbeth Nolan MA Active Moving or speaking so slowly that other people could have noticed? Or the opposite - being so fidgety or restless that you have been moving around a lot more than usual. Not at all 06/02/2024 1:47 PM CDT Lizbeth Nolan MA Active Thoughts that you would be better off or hurting yourself in some way Not at all 06/02/2024 1:47 PM CDT Lizbeth Nolan MA Active Patient Health Questionnaire-9 Score 2 06/02/2024 1:47 PM CDT Lizbeth Nolan MA Active * Calculated C-SSRS Risk Score (Lifetime/Recent) Answer Date of Assessment Author Status No Risk Indicated 06/02/2024 4:03 PM Osman Avalos MD Active * If you checked off any problems on this questionnaire so far, Question Answer Date of Assessment Author Status How difficult have these problems made it for you to do your work, take care of things at home, or get along with other people? Not difficult at all 06/02/2024 1:47 PM CDT Lizbeth Nolan MA Active * Over the last 2 weeks, how often have you been bothered by any of the following problems? Question Answer Date of Assessment Author Status Feeling nervous, anxious, or on edge 2 06/02/2024 1:47 PM CDT Lizbeth Nolan MA Active Not being able to stop or control worrying 1 06/02/2024 1:47 PM CDT Lizbeth Nolan MA Activ e Worrying too much about different things 2 06/02/2024 1:47 PM CDT Lizbeth Nolan MA Activ e Trouble relaxing 0 06/02/2024 1:47 PM CDT Lizbeth Nolan MA Active Being so restless that it is hard to sit still 0 06/02/2024 1:47 PM CDT Lizbeth Nolan MA Acti ve Becoming easily annoyed or irritable 2 06/02/2024 1:47 PM CDT Lizbeth Nolan MA Active Feeling afraid as if something awful might happen 1 06/02/2024 1:47 PM CDT Lizbeth Nolan MA Active MARIBEL-7 Total Score 8 06/02/2024 1:47 PM CDT Lizbeth Nolan MA Active * [place] Suicide Severity Rating Scale (Screener/Recent Self-Report) Question Answer Date of Assessment Author Status 1. Wish to be (Past 1 Month) No 06/02/2024 4:03 PM Osman Avalos MD Active 2. Non-Specific Active Suici denys Thoughts (Past 1 Month) No 06/02/2024 4:03 PM Osman Avalos MD Active 6. Suicidal Behavior (Lifetime) No 06/02/2024 4:03 PM Osman Avalos MD Active documented as of this encounter Plan of Treatment Upcoming Encounters Date Type Department Care Team (Late st Contact Info) Description 07/02/2024 12:40 PM CDT Office Visit [facility] Medical Group Multispecialty Care - [place] [address] [address] [address] [place] [address] Osman Bravo MD [address] [place] [address] documented as of this encounter Visit Diagnoses Not on filedocumented in this encounter Additional Health Concerns Assessment Noted Time PHQ-9 Depression Total Score: 2 06/03/19 25 1:47 PM CDT documented as of this encounter Care Teams Detective Chief Relationship Specialty Start Date End Date Osman Bravo MD [address] [place] [address] PCP - General INTERNAL MEDICINE 04/01/23 documented as of this encounter
--- OUTSIDE RECORDS SUMMARY | 2024-06-14 15:06 | XMS_ITS | Encounter Summary ---
Author Organization [facility] Address [facility]ly [facility] [place] [address] Care Team Providers Care Data Review Specialist Name Role Phone Osman Bravo MD Primary Care Provider [phone] Encounter Details Date Type Department Care Team (Late st Contact Info) Description 12/08/[address] [facility] [address] [address] [place], [place] [id number] Osman Bravo MD [facility] [address] [id number] Blood Work Social History Tobacco Use Types Packs/Day Years Used Date Smoking Tobacco: Never Passive Smoke Exposure: Never Smokeless Tobacco: Never Alcohol Use Standard Drinks/Week Comments Never 0 (1 standard drink = 0.6 oz pur e alcohol) PHQ-2 Answer Date Recorded Patient Health Questionnaire-2 Score 3 04/30/2023 Comments No Sex and Gender Information Value Date Recorded Sex Assigned at Female 04/12/2024 3:26 PM SCIENTIFIC SPECIALIST Legal Sex Female 11:31 AM SCIENTIFIC SPECIALIST Gender Identity Female 04/12/2024 3:26 PM SCIENTIFIC SPECIALIST Sexual Orientation Straight 04/12/2024 3: 26 PM SCIENTIFIC SPECIALIST documented as of this encounter Plan of Treatment Upcoming Encounters Date Type Department Care Team (Late Contact Info) Description 07/02/2024 12:40 PM CDT [facility] [place] [address] [address] [place] [address] Osman Bravo MD [facility] [address] [place] [address] documented as of this encounter Visit Diagnoses Not on filedocumented in this encounter Additional Health Concerns Infection Onset Date Last Indicated Resolved Time COVID-19 Rule Out 04/12/2024 04/16/2024 04/19/2024 12:32 AM SCIENTIFIC SPECIALIST Assessment Noted Time PHQ-9 Depression Total Score: 4 04/30/19 2:57 PM CDT documented as of this encounter Care Teams Data Review Specialist Relationship Specialty Start Date End Date Osman Bravo MD [address] [facility] [address] [place] [address] PCP - General INTERNAL MEDICINE 04/01/23 documented as of this encounter
--- OUTSIDE RECORDS SUMMARY | 2024-06-14 15:06 | XMS_ITS | Encounter Summary ---
Author Organization [facility] Address [facility] [place] [address] Care Team Providers Care Media Assistant Name Role Phone Osman Bravo MD Primary Care Provider [phone] Encounter Details Date Type Department Care Team (Late st Contact Info) Description 06/14/2024 Access Intelligencehart Message Enc [facility] Medical Group Multispecialty Care - [place] [address] [address] [place] [address] Osman Bravo MD [address] [place] [address] [address] [place], [place] [id number] Constipation Social History Tobacco Use Types Packs/Day Years [...] from your doctor or pharmacy? Never 06/02/2024 [facility] Utilities Answer Date Recorded In the past 12 months has e electric, gas, oil, or water [employer] threatened to shut off services in your [...] How often do you attend chur or evangelical services? More than 4 times per year 06/02/2024 Do you belong to any clubs o r organizations such as congregational groups, unions, fraternal or athletic groups, or [...] Recorded Patient Health Questionnaire-2 Score 1 06/02/2024 [facility] [place] of Occupat ional Health - Occupational Stress [...] money to buy more. Never true 06/03/19 Within the past 12 months, t he [...] any time in the past 12 m [facility], were you homeless or living in a fpc (including now)? No 06/02/2024 Comments No Sex and Gender Information Value Date Recorded Sex Assigned at Female 04/12/2024 3:26 PM TRAUMA THERAPIST Legal Sex Female 11:31 AM TRAUMA THERAPIST Gender Identity Female 04/12/2024 3:26 PM TRAUMA THERAPIST Sexual Orientation Straight 04/12/2024 3: 26 PM TRAUMA THERAPIST documented as of this encounter Plan of Treatment Upcoming Encounters Date Type Department Care Team (Late st Contact Info) Description 07/02/2024 12:40 PM CDT Office Visit [facility] Medical Group Multispecialty Care - [place] [address] [place] [address] [address] [place] [address] Osman Bravo MD [address] [place] [address] 157 [place] [address] documented as of this encounter Visit Diagnoses Not on filedocumented in this encounter Additional Health Concerns Assessment Noted Time PHQ-9 Depression Total Score: 2 06/03/19 1:47 PM CDT documented as of this encounter Care Teams Media Assistant Relationship Specialty Start Date End Date Osman Bravo MD [address] [address] PCP - General INTERNAL MEDICINE 04/01/23 documented as of this encounter
--- OUTSIDE RECORDS SUMMARY | 2024-06-14 15:06 | XMS_ITS | Encounter Summary ---
Author Organization [facility] Address [facility] [place] [address] Care Team Providers Care Denture Laboratory Technician Name Role Phone Osman Bravo MD Primary Care Provider [phone] Encounter Details Date Type Department Care Team (Late st Contact Info) Description 08/04/2023 [email or web address] Message Enc [facility] - [place] [address] [place] [address] [facility] Provider orders Social History Tobacco Use Types Packs/Day Years Used Date Smoking Tobacco: Never Passive Smoke Exposure: Never Smokeless Tobacco: Never Alcohol Use Standard Drinks/Week Comments Never 0 (1 standard drink = 0.6 oz pur e alcohol) PHQ-2 Answer Date Recorded Patient Health Questionnaire-2 Score 3 04/30/2023 Comments No Sex and Gender Information Value Date Recorded Sex Assigned at Female 04/12/2024 3:26 PM CLINICAL GENETICS LABORATORY CHIEF Legal Sex Female 11:31 AM CLINICAL GENETICS LABORATORY CHIEF Gender Identity Female 04/12/2024 3:26 PM CLINICAL GENETICS LABORATORY CHIEF Sexual Orientation Straight 04/12/2024 3: 26 PM CLINICAL GENETICS LABORATORY CHIEF documented as of this encounter Plan of Treatment Upcoming Encounters Date Type Department Care Team (Late st Contact Info) Description 07/02/2024 12:40 PM CDT [facility] [address] [address] Osman Bravo MD [address] [place] [address] documented as of this encounter Visit Diagnoses Not on filedocumented in this encounter Additional Health Concerns Infection Onset Date Last Indicated Resolved Time COVID-19 Rule Out 04/12/2024 04/16/2024 04/19/2024 12:32 AM CLINICAL GENETICS LABORATORY CHIEF Assessment Noted Time PHQ-9 Depression Total Score: 4 04/30/19 2:57 PM CDT documented as of this encounter Care Teams Denture Laboratory Technician Relationship Specialty Start Date End Date Osman Bravo MD [address] [address] PCP - General INTERNAL MEDICINE 04/01/23 documented as of this encounter
--- OUTSIDE RECORDS SUMMARY | 2024-06-14 15:06 | XMS_ITS | Encounter Summary ---
Author Organization [facility] Address [facility]6 [place] [address] Care Team Providers Care Conductor Orchestra Name Role Phone Osman Bravo MD Primary Care Provider [phone] Encounter Details Date Type Department Care Team (Latest Contact Info) Description 06/02/2024 InsideViewt Message Enc [facility] Medical Group Multispecialty Care - [place] [address] [address] [place] [address] Osman Bravo MD [address] [place] [address] [address] [place], [place] [phone] Verification Form For Work Social History Tobacco Use Types Packs/Day [...] from your doctor or pharmacy? Never 06/02/2024 [facility] Utilities Answer Date Recorded In the past [...] How often do you attend chur or jew services? More than 4 times per year 06/02/2024 Do you belong to any clubs o r organizations such as shinto groups, unions, fraternal or athletic groups, or [...] Recorded Patient Health Questionnaire-2 Score 1 06/02/2024 [facility] [place] of Occupat ional Health - Occupational Stress [...] any time in the past 12 m [facility], were you homeless or living in a detention (including now)? No 06/02/2024 Comments No Sex and Gender Information Value Date Recorded Sex Assigned at Female 04/12/2024 3:26 PM DATA CAPTURE CLERK Legal Sex Female 11:31 AM DATA CAPTURE CLERK Gender Identity Female 04/12/2024 3:26 PM DATA CAPTURE CLERK Sexual Orientation Straight 04/12/2024 3: 26 PM DATA CAPTURE CLERK documented as of this encounter Functional Status [...] on one occasion? Never 06/02/2024 12:57 PM Latoya Elaine MA Active * Over the past 2 [...] much Not at all 06/02/2024 1:47 PM ANUT Lizbeth Nolan MA Acti ve Feeling tired or having little energy Not at all 06/02/2024 1:47 PM ANUT Lizbeth Nolan MA Active Poor appetite or overeating Not at all 06/02/2024 1:47 PM ANUT Lizbeth Nolan MA Active Feeling bad about yourself - or that you are a failure or have let yourself or your family down Several days 06/02/2024 1:47 PM ANUT Lizbeth Nolan MA Active Trouble concentrating on things, such as reading the newspaper or watching television Not at all 06/02/2024 1:47 PM ANUT Lizbeth Nolan MA Active Moving or speaking so slowly that other people could have noticed? Or the opposite - being so fidgety or restless that you have been moving around a lot more than usual. Not at all 06/02/2024 1:47 PM Lizbeth Crowell MA Active Thoughts that you would be better off or hurting yourself in some way Not at all 06/02/2024 1:47 PM CDT Lizbeth Nolan MA Active Patient Health Questionnaire-9 Score 2 06/02/2024 1:47 PM ANUT Lizbeth Nolan MA Active * Calculated C-SSRS Risk Score (Lifetime/Recent) Answer Date of Assessment Author Status No Risk Indicated 06/02/2024 4:03 PM ANUT Osman Bravo MD Active * If you checked off [...] PM CDT Lizbeth Nolan MA Active * [place] Suicide Severity Rating Scale (Screener/Recent Self-Report) Question Answer Date of Assessment Author Status 1. Wish to be (Past 1 Month) No 06/02/2024 4:03 PM Osman Avalos MD Active 2. Non-Specific Active Suici denys Thoughts (Past 1 Month) No 06/02/2024 4:03 PM ANUT Osman Bravo MD Active 6. Suicidal Behavior (Lifetime) No 06/02/2024 4:03 PM ANUT Osman Bravo MD Active documented as of this encounter Plan of Treatment Upcoming Encounters Date Type Department Care Team (Late st Contact Info) Description 07/02/2024 12:40 PM CDT Office Visit [facility] Medical Group Multispecialty Care - [place] [address] [address] [place] [address] Osman Bravo MD [address] [place] [address] documented as of this encounter Visit Diagnoses Not on filedocumented in this encounter Additional Health Concerns Assessment Noted Time PHQ-9 Depression Total Score: 2 06/03/19 25 1:47 PM CDT documented as of this encounter Care Teams Conductor Orchestra Relationship Specialty Start Date End Date Osman Bravo MD [address] [place] [address] PCP - General INTERNAL MEDICINE 04/01/23 documented as of this encounter
--- OUTSIDE RECORDS SUMMARY | 2024-06-14 15:06 | XMS_ITS | Encounter Summary ---
Author Organization [facility] Address [facility]6 [place] [address] Care Team Providers Care Splitting Machine Operator Helper Name Role Phone Osman Bravo MD Primary Care Provider [phone] Encounter Details Date Type Department Care Team (Late st Contact Info) Description 08/15/2023 MetaJuret Message Enc [facility] Medical Group Multispecialty Care - [place] [address] [place] [address] Payal Vega, SALESPERSON SEWING MACHINES [address] [place], [place] [id number] stool studies Social History Tobacco Use Types Packs/Day Years Used Date Smoking Tobacco: Never Passive Smoke Exposure: Never Smokeless Tobacco: Never Alcohol Use Standard Drinks/Week Comments Never 0 (1 standard drink = 0.6 oz pur e alcohol) PHQ-2 Answer Date Recorded Patient Health Questionnaire-2 Score 3 04/30/2023 Comments No Sex and Gender Information Value Date Recorded Sex Assigned at Female 04/12/2024 3:26 PM STRINGER UP SOLDERING MACHINE Legal Sex Female 11:31 AM STRINGER UP SOLDERING MACHINE Gender Identity Female 04/12/2024 3:26 PM STRINGER UP SOLDERING MACHINE Sexual Orientation Straight 04/12/2024 3: 26 PM STRINGER UP SOLDERING MACHINE documented as of this encounter Progress Notes * Jaylen Mar - 08/19/2023 8:39 AM CDT Facesheet and Lab results faxed to [phone] on 08/19/23. documented in this encounter Plan of Treatment Upcoming Encounters Date Type Department Care Team (Late st Contact Info) Description 07/02/2024 12:40 PM CDT Office Visit [facility] Medical Group Multispecialty Care - [place] [address] [address] [place] [address] Osman Bravo MD [address] [place] [address] documented as of this encounter Visit Diagnoses Not on filedocumented in this encounter Additional Health Concerns Infection Onset Date Last Indicated Resolved Time COVID-19 Rule Out 04/12/2024 04/16/2024 04/19/2024 12:32 AM STRINGER UP SOLDERING MACHINE Assessment Noted Time PHQ-9 Depression Total Score: 4 04/30/19 24 2:57 PM CDT documented as of this encounter Care Teams Splitting Machine Operator Helper Relationship Specialty Start Date End Date Osman Bravo MD [address] [place] [address] PCP - General INTERNAL MEDICINE 04/01/23 documented as of this encounter
--- OUTSIDE RECORDS SUMMARY | 2024-06-14 15:06 | XMS_ITS | Encounter Summary ---
Author Organization [facility] Address Critical access hospital[address] [place] [address] Care Team Providers Care Ladle Cleaner Name Role Phone Osman Bravo MD Primary Care Provider Encounter Details Date Type Department Care Team (Late st Contact Info) Description 09/11/2023 BeDohart Message Enc [facility] [place] [address] [place], [place] [phone] Payal Vega, MANAGER TRANSPORTATION PLANNING [address] [facility] [address] [place], [place] [id number] Ear lump Social History Tobacco Use Types Packs/Day Years Used Date Smoking Tobacco: Never Passive Smoke Exposure: Never Smokeless Tobacco: Never Alcohol Use Standard Drinks/Week Comments Never 0 (1 standard drink = 0.6 oz pur e alcohol) PHQ-2 Answer Date Recorded Patient Health Questionnaire-2 Score 3 04/30/2023 Comments No Sex and Gender Information Value Date Recorded Sex Assigned at Female 04/12/2024 3:26 PM MOUNTER SMOKING PIPE Legal Sex Female 11:31 AM MOUNTER SMOKING PIPE Gender Identity Female 04/12/2024 3:26 PM MOUNTER SMOKING PIPE Sexual Orientation Straight 04/12/2024 3: 26 PM MOUNTER SMOKING PIPE documented as of this encounter Plan of Treatment Upcoming Encounters Date Type Department Care Team (Late st Contact Info) Description 07/02/2024 12:40 PM CDT [facility] [place] [address] [place], [place] [phone] Osman Bravo MD [address] [address] documented as of this encounter Visit Diagnoses Not on filedocumented in this encounter Additional Health Concerns Infection Onset Date Last Indicated Resolved Time COVID-19 Rule Out 04/12/2024 04/16/2024 04/19/2024 12:32 AM MOUNTER SMOKING PIPE Assessment Noted Time PHQ-9 Depression Total Score: 4 04/30/19 24 2:57 PM CDT documented as of this encounter Care Teams Ladle Cleaner Relationship Specialty Start Date End Date Osman Bravo MD [address] [address] PCP - General INTERNAL MEDICINE 04/01/23 documented as of this encounter
--- OUTSIDE RECORDS SUMMARY | 2024-06-14 15:06 | XMS_ITS | Encounter Summary ---
Author Organization [facility] Address [address] [place] [address] Care Team Providers Care Equipment Application Specialist Name Role Phone Osman Bravo MD Primary Care Provider [phone] Reason for Visit * Reason Onset Date Comments Question 06/14/2024 Encounter Details Date Type Department Care Team (Late st Contact Info) Description 06/14/2024 Telephone [facility] Mult[facility]pecialty Care - [place] [address] [address] [place] [address] Osman Bravo MD [address] [place] [address] [address] [place], [place] [phone] Question Social History Tobacco Use Types Packs/Day Years [...] 06/02/2024 How often do you attend chur ch or hindu services? More than 4 times per year 06/02/2024 Do you belong to any clubs o r organizations such as moravian groups, unions, fraternal or athletic groups, or [...] Recorded Patient Health Questionnaire-2 Score 1 06/02/2024 [facility] [place] of Occupat ional Health - Occupational Stress [...] any time in the past 12 m [facility], were you homeless or living in a longterm (including now)? No 06/02/2024 Comments No Sex and Gender Information Value Date Recorded Sex Assigned at Female 04/12/2024 3:26 PM PIGMENT GRINDER Legal Sex Female 11:31 AM PIGMENT GRINDER Gender Identity Female 04/12/2024 3:26 PM PIGMENT GRINDER Sexual Orientation Straight 04/12/2024 3: 26 PM PIGMENT GRINDER documented as of this encounter Progress Notes * Raegan Bagley - 06/14/2024 10:37 AM CDT The patient is asking about her new medication: phentermine (ADIPEX-P) 37.5 MG tablet The patient states she is having chest discomfort and is wondering if it is related to the constipation that has been happening since she began taking the medication or is it a new side effect. Chestdiscomfort started on Wednesday June 12, 2024. documented in this encounter Plan of Treatment Upcoming Encounters Date Type Department Care Team (Late st Contact Info) Description 07/02/2024 12:40 PM CDT Office Visit [facility] Medical [facility] Multispecialty Care - [place] [address] [address] [place] [address] Osman Bravo MD [address] [address] documented as of this encounter Visit Diagnoses Not on filedocumented in this encounter Additional Health Concerns Assessment Noted Time PHQ-9 Depression Total Score: 2 06/03/19 25 1:47 PM CDT documented as of this encounter Care Teams Equipment Application Specialist Relationship Specialty Start Date End Date Osman Bravo MD [address] [place] [address] PCP - General INTERNAL MEDICINE 04/01/23 documented as of this encounter
--- OUTSIDE RECORDS SUMMARY | 2024-06-14 15:06 | XMS_ITS | Clinical Summary ---
Author Organization [facility] Address [address] [place] [address] Care Team Providers Care Crucible Packer Name Role Phone Osman Bravo MD Primary Care Provider Allergies No known active allergies Medications tretinoin (RETIN-A) 0.025 % cream 04/13/19 25 Active hydrOXYzine (ATARAX) 25 MG tabletIndicatio ns:Dermatitis,P ruritus Take 1 tablet (25 mg total) by mouth nightly as needed for Itching. 90 tablet 06/03/19 25 Active busPIRone (BUSPAR) 5 MG tabletIndicatio ns:Anxiety Take half a pill to one full tablet three times daily as needed for anxiety. 90 tablet 1 06/03/19 25 Active phentermine (ADIPEX-P) 37.5 MG tabletIndicatio ns:Overweight (BMI 25.0-29.9) Take 1 tablet (37.5 mg total) by mouth every morning before breakfast for 30 days. 30 tablet 06/03/19 25 025 Active methylPREDNISol one, SALBADOR, (MEDROL DOSEPAK) 4 MG tabletIndicatio ns:URTI (acute upper respiratory infection) 6 TABLETS ON DAY ONE, 5 TABLETS DAY TWO, 4 TABLETS DAY THREE, 3 TABLETS DAY FOUR, 2 TABLETS DAY FIVE, AND 1 TABLET DAY SIX; no ibuprofen while on the steroid. 1 each 04/12/19 25 025 Discontinued albuterol sulfate HFA 108 (90 Base) MCG/ACT inhalerIndicati ons:URTI (acute upper respiratory infection) Inhale 2 puffs into the lungs every 6 (six) hours as needed. 18 g 04/12/19 25 025 Discontinued(Ot her- Please enter comment in Notes field) Active Problems Problem Noted Date Diagnosed Date Elevated fecal calprotectin 08/15/2023 Diarrhea, unspecified type 08/15/2023 Ear lump, left 07/02/2023 Nodule of left external ear 07/02/2023 Anxiety 04/30/2023 Family history of breast cancer in mother 2023 Encounters Date Type Department Care Team Description 06/14/2024 Telephone [place] [address] [place] [address] Osman Bravo MD Question 06/14/2024 MyChart Message [place] [address] [place] [address] Osman Bravo MD Constipation 06/02/2024 1:00 PM CDT Office Visit [place] [address] [address] [place] [address] Osman Bravo MD Physical; Weight Problem; Skin Problem 06/02/2024 Results Follow-Up [place] [address] [address] [place] [address] Osman Bravo MD URINALYSIS AUTO DIP, CBC W/DIFF AUTOMATED, COMPREHENSIVE METABOLIC PANEL, Additional followed-up results: 3 06/02/2024 Partigi Message [place] [address] [address] [place] [address] Osman Bravo MD Verification Form For Work 06/02/2024 Travel 05/28/2024 Scan KidsLink INFO SRVCS Scanned, Doc [facility] Group Ultrasound (SCAN) 05/17/2024 Telephone [place] [address] [address] [place] [address] Osman Bravo MD Lab Results (Fax to Eric. ) 05/14/2024 Telephone [place] [address] [address] [facility] [address] [place] [address] Osman Bravo MD Record Request 04/19/2024 Telephone [place] [address] [address] [facility] [address] [place] [address] Osman Bravo MD Medication 04/19/2024 MyChart Message Enc [place] [address] [address] [facility] [address] [place] [address] Osman Bravo MD Cough 04/12/2024 3:20 PM COLORING ROOM MAN Office Visit [place] [address] [address] [facility] [address] [place] [address] Osman Bravo MD Follow Up (Acute, fever 24 hrs ago. Home covid test negative this morning. ); Headache; Congestion; Cough (Coughing up yellow mucus ) 04/12/2024 Travel 04/12/2024 Telephone [place] [address] [address] [facility] [address] [place] [address] Osman Bravo MD Other from Last 3 Months Immunizations Immunization Administration Dates Next Due Tdap (Generic) 06/27/2015 Family History Medical History Relation Comments Cancer Mother Breast Cancer Diabetes Mother Relation Status Comments Mother Social History Tobacco Use Types Packs/Day Years Used Date Smoking Tobacco: Never Passive Smoke Exposure: Never Smokeless Tobacco: Never Tobacco Cessation:Counseling Given: Yes Comments:Counseled by Dr. Bravo. Alcohol Use Standard Drinks/Week Comments Never 0 (1 standard drink = 0.6 oz pur e alcohol) B1300 Health Literacy Answer Date Recor ded How often do you need to hav e someone help you when you read instructions, pamphlets, or other written material from your doctor or pharmacy? Never 06/02/2024 [facility] Utilities Answer Date Recorded In [...] week 06/02/2024 How often do you attend [facility] or taoism services? More than 4 times per year 06/02/2024 Do you belong to any clubs o r organizations such as nondenominational groups, unions, fraternal or athletic groups, or [...] Recorded Patient Health Questionnaire-2 Score 1 06/02/2024 [facility] of Occupat ional Health - Occupational Stress [...] any time in the past 12 m [facility], were you homeless or living in a senior care (including now)? No 06/02/2024 Comments No Sex and Gender Information Value Date Recorded Sex Assigned at Female 04/12/2024 3:26 PM COLORING ROOM MAN Legal Sex Female 11:31 AM COLORING ROOM MAN Gender Identity Female 04/12/2024 3:26 PM COLORING ROOM MAN Sexual Orientation Straight 04/12/2024 3: 26 PM COLORING ROOM MAN Last Filed Vital Signs Vital Sign Reading Time Taken Comments Blood Pressure 93/66 06/02/2024 12:59 PM CDT Pulse 86 06/02/2024 12:59 PM CDT Temperature 37 C (98.6 F) 06/02/2024 12:59 PM CDT Respiratory Rate 16 06/02/2024 12:59 PM CDT Oxygen Saturation 98% 06/02/2024 12:59 PM CDT Inhaled Oxygen Concentration - - Weight 83.1 kg (183 lb 4.8 oz) 06/02/2024 12:59 PM CDT Height 167.6 cm (5' 6 ) 06/02/2024 12:59 PM CDT Body Mass Index 29.59 06/02/2024 12:59 PM CDT Plan of Treatment Upcoming Encounters Date Type Department Care Team (Late st Contact Info) Description 07/02/2024 12:40 PM CDT Office Visit [facility] Medical [facility] Multispecialty Care - [place] [address] [address] [place], [place] [phone] Osman Bravo MD [address] [facility] [address] [place], [place] [id number] Health Maintenance Due Date Last Done Comments Hepatitis B Vaccines (1 of 3 - 19+ 3-dose series) 05/24/2007 Cervical Cancer Screening Pa p with HPV Testing (Age 30 to 64) Every 5 Years 2018 11/27/2016 COVID-19 Vaccine (2 - 2023-2 5 season) 2023 04/21/2020 Annual Physical 06/02/2025 06/02/2024, 04/30/2023 DTaP, Tdap and Td Vaccines ( 2 - Td or Tdap) 06/26/2025 06/27/2015 Cervical Cancer Screening Pa p Smear (Age 30 to 64) Every 3 Years 03/25/2026 03/25/2023, 11/27/2016 Cervical Cancer Screening [facility] HPV 03/25/2026 Hepatitis C Completed 04/30/2023 PHQ-2 (Physician Yuhaaviatam) Completed 06/02/2024 HPV Vaccines Aged Out No longer eligi ble based on patient's age to complete this topic Meningococcal B Vaccine Aged Out No l onger eligible based on patient's age to complete this topic Meningococcal Vaccine Aged Out No natividad sandra eligible based on patient's age to complete this topic Pneumococcal Vaccine: Pediatrics (0 to 5 Years) and At-Risk Patients (6 to 49 Years) Aged Out No longer eligible b ased on patient's age to complete this topic RSV Immunizations Under 20 Months Aged Out No longer eligible b ased on patient's age to complete this topic Procedures Procedure Name Priority Date/Time Associated Diagnosis Comments HEMOGLOBIN, GLYCOSYLATED Routine 06/02/2024 1:59 PM CDT Annual physical exam General medical exam Drug therapy TSH W/REFLEX Routine 06/02/2024 1:59 PM CDT Annual physical exam General medical exam Drug therapy LIPID PANEL Routine 06/02/2024 1:59 PM CDT Annual physical exam General medical exam Drug therapy COMPREHENSIVE METABOLIC PANEL Routine 06/02/2024 1:59 PM CDT Annual physical exam General medical exam Drug therapy CBC W/DIFF AUTOMATED Routine 06/02/2024 1:59 PM CDT Annual physical exam General medical exam Drug therapy COLLECTION VENOUS BLOOD VENIPUNCTURE Routine 06/02/2024 1:15 PM CDT Annual physical exam General medical exam Drug therapy URINALYSIS AUTO DIP Routine 06/02/2024 Annual physical exam General medical exam Drug therapy ULTRASOUND GENERIC (SCAN ORDER) 05/28/2024 CORONAVIRUS (COVID-19) INFLUENZA A & B ANTIGEN IA PANEL Routine 04/16/2024 Acute cough HEPATITIS C ANTIBODY Routine 04/30/2023 3:09 PM CDT Annual physical exam Establishing care with new doctor, encounter for General medical exam Encounter for hepatitis C screening test for low risk patient OUTSIDE CYTOPATH CERV/VAG INTERPRET (PAP) (SCAN ORDER) 03/25/2023 from Last 3 Months or Most Recently Relevant to Health Maintenance Results * TSH W/REFLEX (06/02/2024 1:59 PM CDT) TSH 1.528 0.358 - 3.740 uIU/ML 06/02/2024 7:37 PM CDT [facility] 06/02/2024 1:59 PM CDT us Osman Bravo MD LABORATORY Final Result Performing Organization Address City/[facility]/ZIP Co de Phone Number [facility] [address] [place] [address], [place] [phone] * HEMOGLOBIN, GLYCOSYLATED (06/02/2024 1:59 PM CDT) HGB A1C 4.8 4.5 - 6.2 % 06/02/2024 7:47 PM CDT [facility] ESTIMATED AVG GLUCOSE 91 74 - 106 MG/DL 06/02/2024 7:47 PM CDT [facility] 06/02/2024 1:59 PM CDT us Osman Bravo MD LABORATORY Final Result Performing Organization Address [facility] Co de Phone Number [facility] [address] [place] [address], [place] [phone] * (ABNORMAL) COMPREHENSIVE METABOLIC PANEL (06/02/2024 1:59 PM CDT) SODIUM S/P/B 142 136 - 145 MMOL/L 06/02/2024 7:37 PM CDT [facility] POTASSIUM S/P/B 4.6 3.5 - 5.1 MMOL/L 06/02/2024 7:37 PM CDT [facility] CHLORIDE S/P/B 104 98 - 107 MMOL/L 06/02/2024 7:37 PM CDT [facility] CO2 28.8 21 - 32 MMOL/L 06/02/2024 7:47 PM CDT [facility] GLUCOSE 84 70 - 99 MG/DL 06/02/2024 7:37 PM CDT [facility] BUN 11 7 - 18 MG/DL 06/02/2024 7:37 PM CDT [facility] CREATININE S/P/B 0.66 0.55 - 1.02 MG/DL 06/02/2024 7:37 PM [facility] CALCIUM S/P/B 10.2 8.4 - 10.5 MG/DL 06/02/2024 7:37 PM [facility] BILIRUBIN TOTAL S/P/B 0.7 0.2 - 1.0 MG/DL 06/02/2024 7:37 [facility] ALKALINE PHOSPHATASE S/P/B 70 37 - 98 U/L 06/02/2024 7:37 PM T [facility] AST <5(L) 15 - 37 U/L 06/02/2024 7:37 PM [facility] ALT 26 14 - 59 U/L 06/02/2024 7:37 PM [facility] TOTAL PROTEIN S/P/B 7.6 6.4 - 8.2 G/DL 06/02/2024 7:37 [facility] ALBUMIN S/P/B 4.3 3.4 - 5.0 G/DL 06/02/2024 7:37 PM [facility] ANION GAP 9.2 5 - 15 MMOL/L 06/02/2024 7:47 PM [facility] Comment:REFERENCE [place] NOT ESTABLISHED OSMOLALITY (CALC) 293 MOSM/KG 025 7:37 PM [facility] Comment:REFERENCE RANGE NOT ESTABLISHED GFR ESTIMATE >90 >90 ML/MIN/1. 73 M2 06/02/2024 7:37 PM [facility] GFR NOTES GFR REFERENCE S: 06/02/2024 7:37 [facility] Comment: THE ESTIMATED GFR IS CALCULATED USING THE 2020 CKD-EPI EQUATION. THE FOLLOWING CATEGORIES FOR GRADING RENAL FUNCTION ARE RECOMMENDED BY THE INTERNATIONAL SOCIETY OF NEPHROLOGY (KDIGO 2012 CLINICAL PRACTICE GUIDELINE). G1,NORMAL OR HIGH: >89 ml/min/1.73 m2 G2,MILDLY DECREASED: 60-89 ml/min/1.73 m2 G3A,MILDLY TO MODERATELY DECREASED: 45-59 ml/min/1.73 m2 G3B,MODERATELY TO SEVERELY DECREASED: 30-44 ml/min/1.73 m2 G4,SEVERELY DECREASED: 15-29 ml/min/1.73 m2 G5,KIDNEY FAILURE: <15 ml/min/1.73 m2 06/02/2024 1:59 PM CDT us Osman Bravo MD LABORATORY Final Result [facility] [address] [place] [address], * (ABNORMAL) LIPID PANEL (06/02/2024 1:59 PM CDT) CHOLESTEROL 215(H) <200 MG/DL 06/02/2024 7:37 PM CDT [facility] TRIGLYCERIDES 53 <150 MG/DL 06/02/2024 7:37 PM CDT [facility] HDL 75 >40 MG/DL 06/02/2024 7:37 PM CDT [facility] LDL-C 129(H) <100 MG/DL 06/02/2024 7:37 PM CDT [facility] VLDL CALCULATION 11 5 - 28 MG/DL 06/02/2024 7:37 PM CDT [facility] CHOL/HDL RATIO 2.9 0.0 - 4.0 06/02/2024 7:37 PM CDT [facility] LDL/HDL 1.7 0.41 - 2.13 06/02/2024 7:37 PM CDT [facility] NON HDL CHOLESTEROL 140(H) <140 MG/DL 06/02/2024 7:37 PM CDT [facility] 06/02/2024 1:59 PM CDT us Osman Bravo MD LABORATORY Final Result -[facility] [address] [place] [address], * (ABNORMAL) CBC W/DIFF AUTOMATED (06/02/2024 1:59 PM CDT) [facility] WBC 8.86 4.00 - 10.80 x10'3/uL 06/02/2024 7:25 PM CDT -[facility] RBC 4.86 4.10 - 5.40 x10'6/uL 06/02/2024 7:25 PM CDT [facility] HGB 14.7 12.0 - 16.0 G/DL 06/02/2024 7:25 PM CDT [facility] HCT 43.8 36.0 - 47.0 % 06/02/2024 7:25 PM CDT [facility] MCV 90.1 78.0 - 100.0 FL 06/02/2024 7:25 PM CDT [facility] MCH 30.2 27.0 - 31.0 PG 06/02/2024 7:25 PM CDT [facility] MCHC 33.6 33.0 - 36.0 G/DL 06/02/2024 7:25 PM CDT [facility] RDW 12.7 11.5 - 14.5 % 06/02/2024 7:25 PM CDT [facility] PLT 287 150 - 350 x10'3/uL 06/02/2024 7:25 PM CDT [facility] MPV 10.8(H) 7.4 - 10.4 FL 06/02/2024 7:25 PM CDT [facility] DIFFERENTIAL TYPE AUTOMATED DIFFERENTIAL 06/02/2024 7:25 PM CDT [facility] NEUTROPHILS % 63.2 % 06/02/2024 7:25 PM CDT [facility] LYMPHOCYTES % 28.9 % 06/02/2024 7:25 PM CDT [facility] MONOCYTES % 6.8 % 06/02/2024 7:25 PM CDT [facility] EOSINOPHILS % 0.1 % 06/02/2024 7:25 PM CDT [facility] BASOPHILS % 0.7 % 06/02/2024 7:25 PM CDT [facility] IMMATURE GRANS % 0.3 % 06/02/2024 7:25 PM CDT [facility] ABS. NEUTROPHILS 5.60 1.60 - 8.30 x10'3/uL 06/02/2024 7:25 PM CDT [facility] ABS. LYMPHOCYTES 2.56 0.80 - 4.70 x10'3/uL 06/02/2024 7:25 PM CDT [facility] ABS. MONOCYTES 0.60 0.00 - 1.50 x10'3/uL 06/02/2024 7:25 PM CDT -[facility] ABS. EOSINOPHILS 0.01 0.00 - 0.40 x10'3/uL 06/02/2024 7:25 PM CDT [facility] ABS. BASOPHILS 0.06 0.00 - 0.20 x10'3/uL 06/02/2024 7:25 PM CDT [facility] ABS. IMMATURE GRANULOCYTES 0.03 0.00 - 0.03 x10'3/uL 06/02/2024 7:25 PM CDT [facility] 06/02/2024 1:59 PM CDT us Osman Bravo MD LABORATORY Final Result [facility] [address] [place] [address], * URINALYSIS AUTO DIP (06/02/2024) Pathologist [facility] COLOR (U) YELLOW YELLOW [address], [place] TRANSPARENCY CLEAR CLEAR [address], [place] GLUCOSE (U) NEGATIVE NEGATIVE MG/DL [address], [place] BILIRUBIN (U) NEGATIVE NEGATIVE [address], [place] KETONES MG/DL (U) NEGATIVE NEGATIVE MG/DL [address], [place] SPECIFIC GRAVITY (U) 1.015 1.001 - 1.035 [address], [place] BLOOD (U) NEGATIVE NEGATIVE [address], [place] U PH 7.0 5.0 - 9.0 [address], [place] PROTEIN (U) NEGATIVE NEGATIVE mg/dL [address], [place] UROBILINOGEN 0.2 0.2 - 1.0 EU/dL = mg/dL [address], [place] NITRITES NEGATIVE NEGATIVE MG/DL [address], [place] LEUKOCYTES (U) NEGATIVE NEGATIVE MG[address], [place] URINE SPECIMEN OBTAINED BY CLEAN CATCH PROCEDURE / Unknown 06/02/2024 Osman Bravo MD URINE ORDERABLES Final Result [address], [place] [address] [place] [address], [place] [phone] * ULTRASOUND GENERIC (SCAN ORDER) (05/28/2024) Anatomical Region Laterality Modality Other 05/28/2024 us [facility] Scanned SCANNING Final Resu lt * CORONAVIRUS (COVID-19) INFLUENZA A & B ANTIGEN IA PANEL (04/16/2024) Pathologist [facility] CORONAVIRUS ANTIGEN IA NEGATIVE NEGATIVE [address], [facility] INFLU[facility] A NEGATIVE NEGATIVE [address], [place] INFLUENZA B NEGATIVE NEGATIVE [address], [place] Internal Control: VALID VALID [address], [place] NASAL STRUCTURE / Unknown 04/16/2024 us Osman Bravo MD MICROBIOLOGY - GENERAL ORDERABLE S Final Result [address], [place] [address] [place] [address], [place] [phone] * HEPATITIS C ANTIBODY (04/30/2023 3:09 PM CDT) HEPATITIS C AB NON-REACTI VE NON-REACT NICKO 04/30/2023 9:50 PM CDT [facility] Comment: ANTIBODIES TO HCV NOT DETECTED. DOES NOT EXCLUDE THE POSSIBILITY OF EXPOSURE TO HCV. 04/30/2023 3:09 PM CDT Osman Bravo MD LABORATORY Final Result Performing Organization Address City/[facility]/ZIP Co de Phone Number [facility] [address] [place] [address], [place] [phone] * PAP SMEAR (SCAN ORDER) (03/25/2023) 03/25/2023 us Doc [facility] Scanned SCANNING Final Resu lt from Last 3 Months or Most Recently Relevant to Health Maintenance Insurance [id number] Care Teams Crucible Packer Relationship Specialty Start Date End Date Osman Bravo MD [address] [facility] [address] [place] [address] PCP - General INTERNAL MEDICINE 04/01/23
--- OUTSIDE RECORDS SUMMARY | 2024-06-14 15:06 | XMS_ITS | Encounter Summary ---
Author Organization [facility] Address [facility] [place] [address] Care Team Providers Care Packing Line Worker Name Role Phone Osman Bravo MD Primary Care Provider [phone] Encounter Details Date Type Department Care Team (Late st Contact Info) Description 08/04/2023 [employer] Message [facility] [place] [address] [place], [place] [id number] Payal Vega, APPOINTMENT CLERK [address] [facility] [address] [place], [place] [id number] stool studies Social History Tobacco Use Types Packs/Day Years Used Date Smoking Tobacco: Never Passive Smoke Exposure: Never Smokeless Tobacco: Never Alcohol Use Standard Drinks/Week Comments Never 0 (1 standard drink = 0.6 oz pur e alcohol) PHQ-2 Answer Date Recorded Patient Health Questionnaire-2 Score 3 04/30/2023 Comments No Sex and Gender Information Value Date Recorded Sex Assigned at Female 04/12/2024 3:26 PM API PRODUCT MANAGER Legal Sex Female 11:31 AM API PRODUCT MANAGER Gender Identity Female 04/12/2024 3:26 PM API PRODUCT MANAGER Sexual Orientation Straight 04/12/2024 3: 26 PM API PRODUCT MANAGER documented as of this encounter Plan of Treatment Upcoming Encounters Date Type Department Care Team (Late Contact Info) Description 07/02/2024 12:40 PM CDT [facility] [address] [place], [place] [id number] Osman Bravo MD [address] [place] [address] [address] [place] [address] documented as of this encounter Visit Diagnoses Not on filedocumented in this encounter Additional Health Concerns Infection Onset Date Last Indicated Resolved Time COVID-19 Rule Out 04/12/2024 04/16/2024 04/19/2024 12:32 AM API PRODUCT MANAGER Assessment Noted Time PHQ-9 Depression Total Score: 4 04/30/19 2:57 PM CDT documented as of this encounter Care Teams Packing Line Worker Relationship Specialty Start Date End Date Osman Bravo MD [address] [facility] [address] [place] [address] PCP - General INTERNAL MEDICINE 04/01/23 documented as of this encounter
--- OUTSIDE RECORDS SUMMARY | 2024-06-14 15:06 | XMS_ITS | Encounter Summary ---
Author Organization [facility] Address [facility] [place] [address] Care Team Providers Care Underwriting Analyst Name Role Phone Osman Bravo MD Primary Care Provider [phone] Encounter Details Date Type Department Care Team (Late st Contact Info) Description 11/24/2023 MyChart Message Enc [address] [place] [address] Osman Bravo MD [address] [place] [address] Blood Work? Social History Tobacco Use Types Packs/Day Years Used Date Smoking Tobacco: Never Passive Smoke Exposure: Never Smokeless Tobacco: Never Alcohol Use Standard Drinks/Week Comments Never 0 (1 standard drink = 0.6 oz pur e alcohol) PHQ-2 Answer Date Recorded Patient Health Questionnaire-2 Score 3 04/30/2023 Comments No Sex and Gender Information Value Date Recorded Sex Assigned at Female 04/12/2024 3:26 PM OCCUPATIONAL THERAPY SUPERVISOR Legal Sex Female 11:31 AM OCCUPATIONAL THERAPY SUPERVISOR Gender Identity Female 04/12/2024 3:26 PM OCCUPATIONAL THERAPY SUPERVISOR Sexual Orientation Straight 04/12/2024 3: 26 PM OCCUPATIONAL THERAPY SUPERVISOR documented as of this encounter Plan of Treatment Upcoming Encounters Date Type Department Care Team (Late st Contact Info) Description 07/02/2024 12:40 PM CDT [facility] [address] [address] [place] [address] Osman Bravo MD [address] [place] [address] documented as of this encounter Visit Diagnoses Not on filedocumented in this encounter Additional Health Concerns Infection Onset Date Last Indicated Resolved Time COVID-19 Rule Out 04/12/2024 04/16/2024 04/19/2024 12:32 AM OCCUPATIONAL THERAPY SUPERVISOR Assessment Noted Time PHQ-9 Depression Total Score: 4 04/30/19 2:57 PM CDT documented as of this encounter Care Teams Underwriting Analyst Relationship Specialty Start Date End Date Osman Bravo MD [address] [facility] [address] [place] [address] PCP - General INTERNAL MEDICINE 04/01/23 documented as of this encounter
[2024-06-14 15:47] LABS: Basophils Absolute Auto 0.1 K/mm3 (0.0-0.1); Basophils Percent Auto 0.7 % (0.2-1.2); Eosinophils Percent Auto 0.3 % (0-4.4); Hematocrit 41.9 % (37.0-47.0); Immature Granulocyte Absolute 0.04 K/mm3 (0.00-0.031); Immature Granulocyte Percent A 0.4 % (0-0.5); Lymphocytes Absolute Auto 2.92 K/mm3 (0.9-3.2); Lymphocytes Percent Auto 30.4 % (18.3-44.2); Mean Corpuscular HGB Conc 33.4 g/dl (32-36); Mean Corpuscular Hemoglobin 30.8 pg (26-34); Mean Corpuscular Volume 92.1 fl (80-100); Mean Platelet Volume 10.8 fl (7.4-10.4); Monocytes Absolute Auto 0.7 K/mm3 (0.1-0.6); Monocytes Percent Auto 7.3 % (2.6-8.5); Neutrophils Absolute Auto 5.8 K/mm3 (1.3-6.7); Neutrophils Percent Auto 60.9 % (45.5-73.1); Platelet Count Result 249 k/mm3 (150-375); Red Blood Count 4.55 M/mm3 (4.2-5.4); Red Cell Distribution Width 12.6 % (11.5-14.5); White Blood Count 9.6 K/mm3 (4.5-10.0)
[2024-06-14 15:59] LABS: Alanine Aminotransferase 18 U/L (6-35); Albumin Level 4.6 g/dL (3.5-5.1); Alkaline Phosphatase 55 U/L (38-126); Anion Gap 11 mmol/L (4-12); Aspartate Amino Transferase 14 U/L (14-36); Bilirubin,Total 0.6 mg/dL (0.2-1.3); Blood Urea Nitrogen 13 mg/dL (7-17); Calcium 9.6 mg/dL (8.4-10.2); Carbon Dioxide 22 mmol/L (22-30); Chloride 105 mmol/L (98-107); Estimated CRCL calculation 98 ml/min; Estimated Glomerular Filt Rate > 60; Glucose 82 mg/dL (65-110); Lipase 70 U/L (23-300); Sodium 138 mmol/L (137-145)
[2024-06-14 16:04] LABS: INR 1.1
[2024-06-14 16:05] LABS: Partial Thromboplastin Time 30.2 Seconds (22.3-36.8)
[2024-06-14 16:10] LABS: Troponin I < 0.012 ng/mL (0.000-0.034)
[2024-06-14 18:12] LABS: D Dimer 0.31 ug/mL (<0.48)
--- OUTSIDE RECORDS SUMMARY | 2024-06-14 18:36 | XMS_ITS | Encounter Summary ---
Author Organization [facility] Address [facility] [place] [address] Care Team Providers Care Chandelier Maker Name Role Phone Osman Bravo MD Primary Care Provider [phone] Encounter Details Date Type Department Care Team (Late st Contact Info) Description 09/11/2023 Kitsy Lanehart Message Enc [facility] [place] [address] [facility] [address] [place], [place] [id number] Payal Vega, RETAIL SUPPORT MANAGER [address] [facility] [address] [place], [place] [id number] Ear lump Social History Tobacco Use Types Packs/Day Years Used Date Smoking Tobacco: Never Passive Smoke Exposure: Never Smokeless Tobacco: Never Alcohol Use Standard Drinks/Week Comments Never 0 (1 standard drink = 0.6 oz pur e alcohol) PHQ-2 Answer Date Recorded Patient Health Questionnaire-2 Score 3 04/30/2023 Comments No Sex and Gender Information Value Date Recorded Sex Assigned at Female 04/12/2024 3:26 PM TELEHEALTH NURSE EDUCATOR Legal Sex Female 11:31 AM TELEHEALTH NURSE EDUCATOR Gender Identity Female 04/12/2024 3:26 PM TELEHEALTH NURSE EDUCATOR Sexual Orientation Straight 04/12/2024 3: 26 PM TELEHEALTH NURSE EDUCATOR documented as of this encounter Plan of Treatment Upcoming Encounters Date Type Department Care Team (Late st Contact Info) Description 07/02/2024 12:40 PM CDT [facility] [address] [facility] [address] [place], [place] [address] Osman Bravo MD [address] [address] documented as of this encounter Visit Diagnoses Not on filedocumented in this encounter Additional Health Concerns Infection Onset Date Last Indicated Resolved Time COVID-19 Rule Out 04/12/2024 04/16/2024 04/19/2024 12:32 AM TELEHEALTH NURSE EDUCATOR Assessment Noted Time PHQ-9 Depression Total Score: 4 04/30/19 24 2:57 PM CDT documented as of this encounter Care Teams Chandelier Maker Relationship Specialty Start Date End Date Osman Bravo MD [address] [address] PCP - General INTERNAL MEDICINE 04/01/23 documented as of this encounter
--- OUTSIDE RECORDS SUMMARY | 2024-06-14 18:36 | XMS_ITS | Encounter Summary ---
Author Organization [facility] Address [facility] [place] [address] Care Team Providers Care Newspaper Photo Editor Name Role Phone Osman Bravo MD Primary Care Provider [phone] Encounter Details Date Type Department Care Team (Latest Contact Info) Description 06/02/2024 Ly[employer]est Message Enc [facility] Medical Group Multispecialty Care - [place] [address] [address] [place] [address] Osman Bravo MD [address] [place] [address] [address] [place], [place] [id number] Verification Form For Work Social History Tobacco [...] from your doctor or pharmacy? Never 06/02/2024 [facility] Utilities Answer Date Recorded In [...] How often do you attend chur or scientologist services? More than 4 times per year 06/02/2024 Do you belong to any clubs o r organizations such as baptist groups, unions, fraternal or athletic groups, or [...] Recorded Patient Health Questionnaire-2 Score 1 06/02/2024 [facility] [place] of Occupat ional Health - Occupational Stress [...] time in the past 12 m [facility], were you homeless or living in a alf (including now)? No 06/02/2024 Comments No Sex and Gender Information Value Date Recorded Sex Assigned at Female 04/12/2024 3:26 PM SCADA ENGINEER Legal Sex Female 11:31 AM SCADA ENGINEER Gender Identity Female 04/12/2024 3:26 PM SCADA ENGINEER Sexual Orientation Straight 04/12/2024 3: 26 PM SCADA ENGINEER documented as of this encounter Functional Status [...] PM CDT Lizbeth Nolan MA Active * [place] Suicide Severity Rating Scale (Screener/Recent Self-Report) Question [...] Description 07/02/2024 12:40 PM CDT Office Visit [facility] Medical Group Multispecialty Care - [place] [address] [address] [place] [address] Osman Bravo MD [address] [place] [address] documented as of this encounter Visit Diagnoses Not on filedocumented in this encounter Additional Health Concerns Assessment Noted Time PHQ-9 Depression Total Score: 2 06/03/19 25 1:47 PM CDT documented as of this encounter Care Teams Newspaper Photo Editor Relationship Specialty Start Date End Date Osman Bravo MD [address] [place] [address] PCP - General INTERNAL MEDICINE 04/01/23 documented as of this encounter
--- OUTSIDE RECORDS SUMMARY | 2024-06-14 18:36 | XMS_ITS | Encounter Summary ---
Author Organization [facility] Address [facility] [place] [address] Care Team Providers Care Air Cargo Specialist Supervisor Name Role Phone Osman Bravo MD Primary Care Provider [phone] Encounter Details Date Type Department Care Team (Late st Contact Info) Description 11/24/2023 MyChart Message Enc [address] [place] [address] Osman Bravo MD [address] [place] [address] Blood Work? Social History Tobacco Use Types Packs/Day Years Used Date Smoking Tobacco: Never Passive Smoke Exposure: Never Smokeless Tobacco: Never Alcohol Use Standard Drinks/Week Comments Never 0 (1 standard drink = 0.6 oz pur e alcohol) PHQ-2 Answer Date Recorded Patient Health Questionnaire-2 Score 3 04/30/2023 Comments No Sex and Gender Information Value Date Recorded Sex Assigned at Female 04/12/2024 3:26 PM SEXOLOGIST Legal Sex Female 11:31 AM SEXOLOGIST Gender Identity Female 04/12/2024 3:26 PM SEXOLOGIST Sexual Orientation Straight 04/12/2024 3: 26 PM SEXOLOGIST documented as of this encounter Plan of Treatment Upcoming Encounters Date Type Department Care Team (Late st Contact Info) Description 07/02/2024 12:40 PM CDT [facility] [address] [address] [place] [address] Osman Bravo MD [address] [place] [address] documented as of this encounter Visit Diagnoses Not on filedocumented in this encounter Additional Health Concerns Infection Onset Date Last Indicated Resolved Time COVID-19 Rule Out 04/12/2024 04/16/2024 04/19/2024 12:32 AM SEXOLOGIST Assessment Noted Time PHQ-9 Depression Total Score: 4 04/30/19 2:57 PM CDT documented as of this encounter Care Teams Air Cargo Specialist Supervisor Relationship Specialty Start Date End Date Osman Bravo MD [address] [facility] [address] [place] [address] PCP - General INTERNAL MEDICINE 04/01/23 documented as of this encounter
--- OUTSIDE RECORDS SUMMARY | 2024-06-14 18:36 | XMS_ITS | Encounter Summary ---
Author Organization [facility] Address [facility] [place] [address] Care Team Providers Care Spinner Frame Name Role Phone Osman Bravo MD Primary Care Provider [phone] Encounter Details Date Type Department Care Team (Latest Contact Info) Description 06/02/2024 Results Follow-Up [facility] Medical Group Multispecialty Care - [place] [address] [address] [place] [address] Osman Bravo MD [address] [place] [address] 157 [place], [place] [address] URINALYSIS AUTO DIP, CBC W/DIFF AUTOMATED, COMPREHENSIVE [...] from your doctor or pharmacy? Never 06/02/2024 [facility] Utilities Answer Date Recorded In the [...] How often do you attend chur or judaism services? More than 4 times per year 06/02/2024 Do you belong to any clubs o r organizations such as spiritism groups, unions, fraternal or athletic groups, or [...] Recorded Patient Health Questionnaire-2 Score 1 06/02/2024 [facility] ional Health - Occupational Stress [...] any time in the past 12 m [facility], were you homeless or living in a care home (including now)? No 06/02/2024 Comments No Sex and Gender Information Value Date Recorded Sex Assigned at Female 04/12/2024 3:26 PM SENIOR CLINICAL DATA MANAGER Legal Sex Female 11:31 AM SENIOR CLINICAL DATA MANAGER Gender Identity Female 04/12/2024 3:26 PM SENIOR CLINICAL DATA MANAGER Sexual Orientation Straight 04/12/2024 3: 26 PM SENIOR CLINICAL DATA MANAGER documented as of this encounter Functional Status [...] things 2 06/02/2024 1:47 PM CDT Lizbeth Nloan MA Activ e Trouble relaxing 0 06/02/2024 [...] PM CDT Lizbeth Nolan MA Active * [place] Suicide Severity Rating Scale (Screener/Recent Self-Report) Question [...] Description 07/02/2024 12:40 PM CDT Office Visit [facility] Medical Group Multispecialty Care - [place] [address] [address] [place] [address] Osman Bravo MD [address] [place] [address] documented as of this encounter Visit Diagnoses Not on filedocumented in this encounter Additional Health Concerns Assessment Noted Time PHQ-9 Depression Total Score: 2 06/03/19 25 1:47 PM CDT documented as of this encounter Care Teams Spinner Frame Relationship Specialty Start Date End Date Osman Bravo MD [address] [place] [address] PCP - General INTERNAL MEDICINE 04/01/23 documented as of this encounter
--- OUTSIDE RECORDS SUMMARY | 2024-06-14 18:36 | XMS_ITS | Encounter Summary ---
Author Organization [facility] Address [facility] [place] [address] Care Team Providers Care Leather Stretcher Name Role Phone Osman Bravo MD Primary Care Provider [phone] Encounter Details Date Type Department Care Team (Late st Contact Info) Description 12/08/2023 Playnomicshart Message Enc [facility] [address] [address] [place], [place] [address] Osman Bravo MD [facility] [address] [phone] Blood Work Social History Tobacco Use Types Packs/Day Years Used Date Smoking Tobacco: Never Passive Smoke Exposure: Never Smokeless Tobacco: Never Alcohol Use Standard Drinks/Week Comments Never 0 (1 standard drink = 0.6 oz pur e alcohol) PHQ-2 Answer Date Recorded Patient Health Questionnaire-2 Score 3 04/30/2023 Comments No Sex and Gender Information Value Date Recorded Sex Assigned at Female 04/12/2024 3:26 PM SHOTWELD OPERATOR Legal Sex Female 11:31 AM SHOTWELD OPERATOR Gender Identity Female 04/12/2024 3:26 PM SHOTWELD OPERATOR Sexual Orientation Straight 04/12/2024 3: 26 PM SHOTWELD OPERATOR documented as of this encounter Plan of Treatment Upcoming Encounters Date Type Department Care Team (Late Contact Info) Description 07/02/2024 12:40 PM CDT [facility] [place] [address] [address] [place] [address] Osman Bravo MD [facility] 157 [place] [address] documented as of this encounter Visit Diagnoses Not on filedocumented in this encounter Additional Health Concerns Infection Onset Date Last Indicated Resolved Time COVID-19 Rule Out 04/12/2024 04/16/2024 04/19/2024 12:32 AM SHOTWELD OPERATOR Assessment Noted Time PHQ-9 Depression Total Score: 4 04/30/19 2:57 PM CDT documented as of this encounter Care Teams Leather Stretcher Relationship Specialty Start Date End Date Osman Bravo MD [address] [facility] [address] [place] [address] PCP - General INTERNAL MEDICINE 04/01/23 documented as of this encounter
--- OUTSIDE RECORDS SUMMARY | 2024-06-14 18:37 | XMS_ITS | Encounter Summary ---
Author Organization [facility] Address [facility] [place] [address] Care Team Providers Care Fish Dressing Machine Feeder Name Role Phone Osman Bravo MD Primary Care Provider [phone] Encounter Details Date Type Department Care Team (Late st Contact Info) Description 04/19/2024 MyChart Message Enc [facility] [address] [address] [place] [address] Osman Bravo MD [address] [place] [address] 157 [place], [place] [id number] Cough Social History Tobacco Use Types Packs/Day [...] Sex Assigned at Female 04/12/2024 3:26 PM STAFF COMBAT INFORMATION CENTER OFFICER Legal Sex Female 11:31 AM STAFF COMBAT INFORMATION CENTER OFFICER Gender Identity Female 04/12/2024 3:26 PM STAFF COMBAT INFORMATION CENTER OFFICER Sexual Orientation Straight 04/12/2024 3: 26 PM STAFF COMBAT INFORMATION CENTER OFFICER documented as of this encounter Plan of Treatment Upcoming Encounters Date Type Department Care Team (Late st Contact Info) Description 07/02/2024 12:40 PM CDT [facility] [place] [address] [address] [place], [place] [address] Osman Bravo MD [address] [address] documented as of this encounter Visit Diagnoses Not on filedocumented in this encounter Additional Health Concerns Infection Onset Date Last Indicated Resolved Time COVID-19 Rule Out 04/12/2024 04/16/2024 04/19/2024 12:32 AM STAFF COMBAT INFORMATION CENTER OFFICER Assessment Noted Time PHQ-9 Depression Total Score: 4 04/30/19 2:57 PM CDT documented as of this encounter Care Teams Fish Dressing Machine Feeder Relationship Specialty Start Date End Date Osman Bravo MD [address] [address] PCP - General INTERNAL MEDICINE 04/01/23 documented as of this encounter
--- OUTSIDE RECORDS SUMMARY | 2024-06-14 18:37 | XMS_ITS | Encounter Summary ---
Author Organization [facility] Address [address] [place] [address] Care Team Providers Care Hadoop Engineer Name Role Phone Osman Bravo MD Primary Care Provider [phone] Reason for Visit * Reason Onset Date Comments Question 06/14/2024 Encounter Details Date Type Department Care Team (Late st Contact Info) Description 06/14/2024 Telephone [facility] Medical Group Multispecialty Care - [place] [address] [address] [place] [address] Osman Bravo MD [address] [place] [address] 157 [place], [place] [phone] Question Social History Tobacco Use Types Packs/Day [...] from your doctor or pharmacy? Never 06/02/2024 [facility] Utilities Answer Date Recorded In [...] often do you attend chur ch or orthodoxy services? More than 4 times per year 06/02/2024 Do you belong to any clubs o r organizations such as jewish groups, unions, fraternal or athletic groups, or [...] Recorded Patient Health Questionnaire-2 Score 1 06/02/2024 [facility] [place] of Occupat ional Health - Occupational Stress [...] any time in the past 12 m [facility], were you homeless or living in a skilled nursing (including now)? No 06/02/2024 Comments No Sex and Gender Information Value Date Recorded Sex Assigned at Female 04/12/2024 3:26 PM FINISH REPAIRER Legal Sex Female 11:31 AM FINISH REPAIRER Gender Identity Female 04/12/2024 3:26 PM FINISH REPAIRER Sexual Orientation Straight 04/12/2024 3: 26 PM FINISH REPAIRER documented as of this encounter Progress Notes [...] Description 07/02/2024 12:40 PM CDT Office Visit [facility] Medical Group Multispecialty Care - [place] [address] [address] [place] [address] Osman Bravo MD [address] [address] documented as of this encounter Visit Diagnoses Not on filedocumented in this encounter Additional Health Concerns Assessment Noted Time PHQ-9 Depression Total Score: 2 06/03/19 25 1:47 PM CDT documented as of this encounter Care Teams Hadoop Engineer Relationship Specialty Start Date End Date Osman Bravo MD [address] [place] [address] PCP - General INTERNAL MEDICINE 04/01/23 documented as of this encounter
--- OUTSIDE RECORDS SUMMARY | 2024-06-14 18:37 | XMS_ITS | Encounter Summary ---
Author Organization [facility] Address [facility] [place] [address] Care Team Providers Care Fire Prevention Engineer Name Role Phone Osman Bravo MD Primary Care Provider [phone] Encounter Details Date Type Department Care Team (Late st Contact Info) Description 06/14/2024 Mohivehart Message Enc [facility] Medical Group Multispecialty Care - [place] [address] [address] [place] [address] Osman Bravo MD [address] [place] [address] 157 [place], [place] [phone] Constipation Social History Tobacco Use Types Packs/Day [...] has e electric, gas, oil, or water Level Chef threatened to shut off services in your [...] How often do you attend chur or mormonism services? More than 4 times per year 06/02/2024 Do you belong to any clubs o r organizations such as cheondoism groups, unions, fraternal or athletic groups, or [...] Recorded Patient Health Questionnaire-2 Score 1 06/02/2024 [facility] [place] of Occupat ional Health - Occupational Stress [...] any time in the past [address] [facility], were you homeless or living in a care home (including now)? No 06/02/2024 Comments No Sex and Gender Information Value Date Recorded Sex Assigned at Female 04/12/2024 3:26 PM KETTLE LOADER Legal Sex Female 11:31 AM KETTLE LOADER Gender Identity Female 04/12/2024 3:26 PM KETTLE LOADER Sexual Orientation Straight 04/12/2024 3: 26 PM KETTLE LOADER documented as of this encounter Plan of Treatment Upcoming Encounters Date Type Department Care Team (Late st Contact Info) Description 07/02/2024 12:40 PM CDT Office Visit [facility] Medical Group Multispecialty Care - [place] [address] [place] [address] [address] [place] [address] Osman Bravo MD [address] [place] [address] 157 [place] [address] documented as of this encounter Visit Diagnoses Not on filedocumented in this encounter Additional Health Concerns Assessment Noted Time PHQ-9 Depression Total Score: 2 06/03/19 1:47 PM CDT documented as of this encounter Care Teams Fire Prevention Engineer Relationship Specialty Start Date End Date Osman Bravo MD [address] [address] PCP - General INTERNAL MEDICINE 04/01/23 documented as of this encounter
--- OUTSIDE RECORDS SUMMARY | 2024-06-14 18:37 | XMS_ITS | Encounter Summary ---
Author Organization [facility] Address [facility] [place] [address] Care Team Providers Care Director Of Slot Operations Name Role Phone Osman Bravo MD Primary Care Provider [phone] Encounter Details Date Type Department Care Team (Late st Contact Info) Description 08/04/2023 Grid20/20hart Message Enc [facility] [place] [address] [facility] [address] [place], [place] [phone] Payal Vega, CLOUD SOFTWARE ENGINEER [address] [facility] [address] [place], [place] [id number] stool studies Social History Tobacco Use Types Packs/Day Years Used Date Smoking Tobacco: Never Passive Smoke Exposure: Never Smokeless Tobacco: Never Alcohol Use Standard Drinks/Week Comments Never 0 (1 standard drink = 0.6 oz pur e alcohol) PHQ-2 Answer Date Recorded Patient Health Questionnaire-2 Score 3 04/30/2023 Comments No Sex and Gender Information Value Date Recorded Sex Assigned at Female 04/12/2024 3:26 PM MANAGER MEDICARE Legal Sex Female 11:31 AM MANAGER MEDICARE Gender Identity Female 04/12/2024 3:26 PM MANAGER MEDICARE Sexual Orientation Straight 04/12/2024 3: 26 PM MANAGER MEDICARE documented as of this encounter Plan of Treatment Upcoming Encounters Date Type Department Care Team (Late Contact Info) Description 07/02/2024 12:40 PM CDT [facility] [place] [address] [facility] [address] [place], [place] [address] Osman Bravo MD [address] [place] [address] [address] [place] [address] documented as of this encounter Visit Diagnoses Not on filedocumented in this encounter Additional Health Concerns Infection Onset Date Last Indicated Resolved Time COVID-19 Rule Out 04/12/2024 04/16/2024 04/19/2024 12:32 AM MANAGER MEDICARE Assessment Noted Time PHQ-9 Depression Total Score: 4 04/30/19 2:57 PM CDT documented as of this encounter Care Teams Director Of Slot Operations Relationship Specialty Start Date End Date Osman Bravo MD [address] [facility] [address] [place] [address] PCP - General INTERNAL MEDICINE 04/01/23 documented as of this encounter
--- OUTSIDE RECORDS SUMMARY | 2024-06-14 18:37 | XMS_ITS | Clinical Summary ---
Author Organization [facility] Address [address] [place] [address] Care Team Providers Care Medical Insurance Coder Name Role Phone Osman Bravo MD Primary Care Provider [phone] Allergies No known active allergies Medications tretinoin [...] Type Department Care Team Description 06/14/2024 Telephone [place] [address] [place] [address] Osman Bravo MD Question 06/14/2024 MyChart Message [place] [address] [place] [address] Osman Bravo MD Constipation 06/02/2024 1:00 PM CDT Office Visit [place] [address] [address] [place] [address] Osman Bravo MD Physical; Weight Problem; Skin Problem 06/02/2024 Results Follow-Up [place] [address] [address] [place] [address] Osman Bravo MD URINALYSIS AUTO DIP, CBC W/DIFF AUTOMATED, COMPREHENSIVE METABOLIC PANEL, Additional followed-up results: 3 06/02/2024 IntY Message [place] [address] [address] [place] [address] Osman Bravo MD Verification Form For Work 06/02/2024 Travel 05/28/2024 Scan Mer[employer] INFO SRVCS Scanned, Doc [facility] Ultrasound (SCAN) 05/17/2024 Telephone [place] [address] [address] [place] [address] Osman Bravo MD Lab Results (Fax to Eric. ) 05/14/2024 Telephone [place] [address] [facility] [address] [place] [address] Osman Bravo MD Record Request 04/19/2024 Telephone [place] [address] [facility] [address] [place] [address] Osman Bravo MD Medication 04/19/2024 MyChart Message Enc [place] [address] [facility] [address] [place] [address] Osman Bravo MD Cough 04/12/2024 3:20 PM WIRELESS WATCHER Office Visit [place] [address] [facility] [address] [place] [address] Osman Bravo MD Follow Up (Acute, fever 24 hrs ago. Home covid test negative this morning. ); Headache; Congestion; Cough (Coughing up yellow mucus ) 04/12/2024 Travel 04/12/2024 Telephone [place] [address] [address] [facility] [address] [place] [address] Osman Bravo MD Other from Last 3 [...] from your doctor or pharmacy? Never 06/02/[address] [facility] Utilities Answer Date Recorded In [...] week 06/02/2024 How often do you attend [facility] or denominational services? More than 4 times per year 06/02/2024 Do you belong to any clubs o r organizations such as gnosticist groups, unions, fraternal or athletic groups, or [...] Recorded Patient Health Questionnaire-2 Score 1 06/02/2024 [facility] - Occupational [...] any time in the past 12 m [facility], were you homeless or living in a senior care (including now)? No 06/02/2024 Comments No Sex and Gender Information Value Date Recorded Sex Assigned at Female 04/12/2024 3:26 PM WIRELESS WATCHER Legal Sex Female 11:31 AM WIRELESS WATCHER Gender Identity Female 04/12/2024 3:26 PM WIRELESS WATCHER Sexual Orientation Straight 04/12/2024 3: 26 PM WIRELESS WATCHER Last Filed Vital Signs Vital Sign Reading [...] Description 07/02/2024 12:40 PM CDT Office Visit [facility] Medical Group Multispecialty Care - [place] [address] [address] [place], [place] [id number] Osman Bravo MD [address] [facility] [place], [place] [id number] Health Maintenance Due Date Last Done Comments [...] Years 03/25/2026 03/25/2023, 11/27/2016 Cervical Cancer Screening [facility] HPV 03/25/2026 Hepatitis C Completed 04/30/2023 PHQ-2 (Physician [place]) Completed 06/02/2024 HPV Vaccines Aged Out No [...] - 3.740 uIU/ML 06/02/2024 7:37 PM CDT -[facility] 06/02/2024 1:59 PM CDT us Osman Bravo MD LABORATORY Final Result Performing Organization Address City/[facility]/ZIP Co de Phone Number [facility] [address] [place] [address], [place] [phone] * HEMOGLOBIN, GLYCOSYLATED (06/02/2024 1:59 PM CDT) HGB A1C 4.8 4.5 - 6.2 % 06/02/2024 7:47 PM CDT [facility] ESTIMATED AVG GLUCOSE 91 74 - 106 MG/DL 06/02/2024 7:47 PM CDT [facility] 06/02/2024 1:59 PM CDT us Osman Bravo MD LABORATORY Final Result Performing Organization Address [facility] Co de Phone Number [facility] [address] [place] [address], [place] [phone] * (ABNORMAL) COMPREHENSIVE METABOLIC PANEL (06/02/2024 1:59 PM CDT) SODIUM S/P/B 142 136 - 145 MMOL/L 06/02/2024 7:37 PM CDT [facility] POTASSIUM S/P/B 4.6 3.5 - 5.1 MMOL/L 06/02/2024 7:37 PM CDT [facility] CHLORIDE S/P/B 104 98 - 107 MMOL/L 06/02/2024 7:37 PM CDT [facility] CO2 28.8 21 - 32 MMOL/L 06/02/2024 7:47 PM CDT [facility] GLUCOSE 84 70 - 99 MG/DL 06/02/2024 7:37 PM CDT [facility] BUN 11 7 - 18 MG/DL 06/02/2024 7:37 PM CDT [facility] CREATININE S/P/B 0.66 0.55 - 1.02 MG/DL 06/02/2024 7:37 PM [facility] CALCIUM S/P/B 10.2 8.4 - 10.5 MG/DL 06/02/2024 7:37 PM [facility] BILIRUBIN TOTAL S/P/B 0.7 0.2 - 1.0 MG/DL 06/02/2024 7:37 [facility] ALKALINE PHOSPHATASE S/P/B 70 37 - 98 U/L 06/02/2024 7:37 PM T [facility] AST <5(L) 15 - 37 U/L 06/02/2024 7:37 PM [facility] ALT 26 14 - 59 U/L 06/02/2024 7:37 PM [facility] TOTAL PROTEIN S/P/B 7.6 6.4 - 8.2 G/DL 06/02/2024 7:37 [facility] ALBUMIN S/P/B 4.3 3.4 - 5.0 G/DL 06/02/2024 7:37 PM [facility] ANION GAP 9.2 5 - 15 MMOL/L 06/02/2024 7:47 PM [facility] Comment:REFERENCE RANGE NOT ESTABLISHED OSMOLALITY (CALC) 293 MOSM/KG 025 7:37 PM [facility] Comment:REFERENCE RANGE NOT ESTABLISHED GFR ESTIMATE >90 >90 ML/MIN/1. 73 M2 06/02/2024 7:37 PM [facility] GFR NOTES GFR REFERENCE S: 06/02/2024 7:37 [facility] Comment: THE ESTIMATED GFR IS CALCULATED [...] us Osman Bravo MD LABORATORY Final Result [facility] [address] [place] [address], * (ABNORMAL) LIPID PANEL (06/02/2024 1:59 PM CDT) CHOLESTEROL 215(H) <200 MG/DL 06/02/2024 7:37 PM CDT [facility] TRIGLYCERIDES 53 <150 MG/DL 06/02/2024 7:37 PM CDT [facility] HDL 75 >40 MG/DL 06/02/2024 7:37 PM CDT [facility] LDL-C 129(H) <100 MG/DL 06/02/2024 7:37 PM CDT [facility] VLDL CALCULATION 11 5 - 28 MG/DL 06/02/2024 7:37 PM CDT [facility] CHOL/HDL RATIO 2.9 0.0 - 4.0 06/02/2024 7:37 PM CDT [facility] LDL/HDL 1.7 0.41 - 2.13 06/02/2024 7:37 PM CDT [facility] NON HDL CHOLESTEROL 140(H) <140 MG/DL 06/02/2024 7:37 PM CDT [facility] 06/02/2024 1:59 PM CDT us Osman Bravo MD LABORATORY Final Result -[facility] [address] [place] [address], * (ABNORMAL) CBC W/DIFF AUTOMATED (06/02/2024 1:59 PM CDT) [facility] WBC 8.86 4.00 - 10.80 x10'3/uL 06/02/2024 7:25 PM CDT -[facility] RBC 4.86 4.10 - 5.40 x10'6/uL 06/02/2024 7:25 PM CDT [facility] HGB 14.7 12.0 - 16.0 G/DL 06/02/2024 7:25 PM CDT [facility] HCT 43.8 36.0 - 47.0 % 06/02/2024 7:25 PM CDT [facility] MCV 90.1 78.0 - 100.0 FL 06/02/2024 7:25 PM CDT [facility] MCH 30.2 27.0 - 31.0 PG 06/02/2024 7:25 PM CDT [facility] MCHC 33.6 33.0 - 36.0 G/DL 06/02/2024 7:25 PM CDT [facility] RDW 12.7 11.5 - 14.5 % 06/02/2024 7:25 PM CDT [facility] PLT 287 150 - 350 x10'3/uL 06/02/2024 7:25 PM CDT [facility] MPV 10.8(H) 7.4 - 10.4 FL 06/02/2024 7:25 PM CDT [facility] DIFFERENTIAL TYPE AUTOMATED DIFFERENTIAL 06/02/2024 7:25 PM CDT [facility] NEUTROPHILS % 63.2 % 06/02/2024 7:25 PM CDT MG-[facility] LYMPHOCYTES % 28.9 % 06/02/2024 7:25 PM CDT [facility] MONOCYTES % 6.8 % 06/02/2024 7:25 PM CDT [facility] EOSINOPHILS % 0.1 % 06/02/2024 7:25 PM CDT [facility] BASOPHILS % 0.7 % 06/02/2024 7:25 PM CDT [facility] IMMATURE GRANS % 0.3 % 06/02/2024 7:25 PM CDT [facility] ABS. NEUTROPHILS 5.60 1.60 - 8.30 x10'3/uL 06/02/2024 7:25 PM CDT [facility] ABS. LYMPHOCYTES 2.56 0.80 - 4.70 x10'3/uL 06/02/2024 7:25 PM CDT [facility] ABS. MONOCYTES 0.60 0.00 - 1.50 x10'3/uL 06/02/2024 7:25 PM CDT -[facility] ABS. EOSINOPHILS 0.01 0.00 - 0.40 x10'3/uL 06/02/2024 7:25 PM CDT [facility] ABS. BASOPHILS 0.06 0.00 - 0.20 x10'3/uL 06/02/2024 7:25 PM CDT [facility] ABS. IMMATURE GRANULOCYTES 0.03 0.00 - 0.03 x10'3/uL 06/02/2024 7:25 PM CDT [facility] 06/02/2024 1:59 PM CDT us Osman Bravo MD LABORATORY Final Result [facility] [address] [place] [address], * URINALYSIS AUTO DIP (06/02/2024) Pathologist [facility] COLOR (U) YELLOW YELLOW [address], [place] TRANSPARENCY CLEAR CLEAR [address], [place] GLUCOSE (U) NEGATIVE NEGATIVE MG/DL [address], [place] BILIRUBIN (U) NEGATIVE NEGATIVE MG-[address], [place] KETONES MG/DL (U) NEGATIVE NEGATIVE MG/DL [address], [place] SPECIFIC GRAVITY (U) 1.015 1.001 - 1.035 [address], [place] BLOOD (U) NEGATIVE NEGATIVE [address], [place] U PH 7.0 5.0 - 9.0 [address], [place] PROTEIN (U) NEGATIVE NEGATIVE mg/dL [address], [place] UROBILINOGEN 0.2 0.2 - 1.0 EU/dL = mg/dL MG[address], [place] NITRITES NEGATIVE NEGATIVE MG/DL MG[address], [place] LEUKOCYTES (U) NEGATIVE NEGATIVE MG-[address], [place] URINE SPECIMEN OBTAINED BY CLEAN CATCH PROCEDURE / Unknown 06/02/2024 Osman Bravo MD URINE ORDERABLES Final Result [address], [place] [address] [place] [address], [place] [phone] * ULTRASOUND GENERIC (SCAN ORDER) (05/28/2024) Anatomical Region Laterality Modality Other 05/28/2024 us Doc Med Group Scanned SCANNING Final Resu lt * CORONAVIRUS (COVID-19) INFLUENZA A & B ANTIGEN IA PANEL (04/16/2024) Pathologist [facility] CORONAVIRUS ANTIGEN IA NEGATIVE NEGATIVE [address], [facility] INFLU[facility]ZA A NEGATIVE NEGATIVE MG[address], [place] INFLUENZA B NEGATIVE NEGATIVE [address], [place] Internal Control: VALID VALID [address], [place] NASAL STRUCTURE / Unknown 04/16/2024 us Osman Bravo MD MICROBIOLOGY - GENERAL ORDERABLE S Final Result [address], [place] [address] [place] [address], [place] [phone] * HEPATITIS C ANTIBODY (04/30/2023 3:09 PM CDT) HEPATITIS C AB NON-REACTI VE NON-REACT NICKO 04/30/2023 9:50 PM CDT [facility] Comment: ANTIBODIES TO HCV NOT DETECTED. DOES NOT EXCLUDE THE POSSIBILITY OF EXPOSURE TO HCV. 04/30/2023 3:09 PM CDT Osman Bravo MD LABORATORY Final Result Performing Organization Address City/[facility]/ZIP Co de Phone Number [facility] [address] [place] [address], [place] [phone] * PAP SMEAR (SCAN ORDER) (03/25/2023) 03/25/2023 us Doc Med Group Scanned SCANNING Final Resu lt from Last 3 Months or Most Recently Relevant to Health Maintenance Insurance [id number] Care Teams Medical Insurance Coder Relationship Specialty Start Date End Date Osman Bravo MD [address] [facility] [address] [place] [address] PCP - General INTERNAL MEDICINE 04/01/23
--- OUTSIDE RECORDS SUMMARY | 2024-06-14 18:37 | XMS_ITS | Encounter Summary ---
Author Organization [facility] Address [facility] [place] [address] Care Team Providers Care Drapery Operator Name Role Phone Osman Bravo MD Primary Care Provider [phone] Encounter Details Date Type Department Care Team (Late st Contact Info) Description 08/15/2023 Precise Light Surgicalt Message Enc [facility] Medical Group Multispecialty Care - [place] [address] [place] [address] Payal Vega, [employer] [address] [place], [place] [phone] stool studies Social History Tobacco Use Types Packs/Day Years Used Date Smoking Tobacco: Never Passive Smoke Exposure: Never Smokeless Tobacco: Never Alcohol Use Standard Drinks/Week Comments Never 0 (1 standard drink = 0.6 oz pur e alcohol) PHQ-2 Answer Date Recorded Patient Health Questionnaire-2 Score 3 04/30/2023 Comments No Sex and Gender Information Value Date Recorded Sex Assigned at Female 04/12/2024 3:26 PM BOILER HOUSE INSPECTOR Legal Sex Female 11:31 AM BOILER HOUSE INSPECTOR Gender Identity Female 04/12/2024 3:26 PM BOILER HOUSE INSPECTOR Sexual Orientation Straight 04/12/2024 3: 26 PM BOILER HOUSE INSPECTOR documented as of this encounter Progress Notes * Jaylen Mar - 08/19/2023 8:39 AM CDT Facesheet and Lab results faxed to [phone] on 08/19/23. documented in this encounter Plan of Treatment Upcoming Encounters Date Type Department Care Team (Late st Contact Info) Description 07/02/2024 12:40 PM CDT Office Visit [facility] Medical Group Multispecialty Care - [place] [address] [address] [place] [address] Osman Bravo MD [address] [place] [address] documented as of this encounter Visit Diagnoses Not on filedocumented in this encounter Additional Health Concerns Infection Onset Date Last Indicated Resolved Time COVID-19 Rule Out 04/12/2024 04/16/2024 04/19/2024 12:32 AM BOILER HOUSE INSPECTOR Assessment Noted Time PHQ-9 Depression Total Score: 4 04/30/19 24 2:57 PM CDT documented as of this encounter Care Teams Drapery Operator Relationship Specialty Start Date End Date Osman Bravo MD [address] [place] [address] PCP - General INTERNAL MEDICINE 04/01/23 documented as of this encounter
--- OUTSIDE RECORDS SUMMARY | 2024-06-14 18:37 | XMS_ITS | Encounter Summary ---
Author Organization [facility] Address [facility] [place] [address] Care Team Providers Care Product Steward Name Role Phone Osman Bravo MD Primary Care Provider [phone] Encounter Details Date Type Department Care Team (Late st Contact Info) Description 07/25/2023 Muec[place]art [facility] [address] [place], [place] [phone] Payal Vega, TYPEWRITER ASSEMBLY AND PARTS INSPECTOR [address] [facility] [address] [place], [place] [id number] labs Social History Tobacco Use Types Packs/Day Years Used Date Smoking Tobacco: Never Passive Smoke Exposure: Never Smokeless Tobacco: Never Alcohol Use Standard Drinks/Week Comments Never 0 (1 standard drink = 0.6 oz pur e alcohol) PHQ-2 Answer Date Recorded Patient Health Questionnaire-2 Score 3 04/30/2023 Comments No Sex and Gender Information Value Date Recorded Sex Assigned at Female 04/12/2024 3:26 PM HEAD DOFFER Legal Sex Female 11:31 AM HEAD DOFFER Gender Identity Female 04/12/2024 3:26 PM HEAD DOFFER Sexual Orientation Straight 04/12/2024 3: 26 PM HEAD DOFFER documented as of this encounter Plan of Treatment Upcoming Encounters Date Type Department Care Team (Late Contact Info) Description 07/02/2024 12:40 PM CDT [facility] [place] [address] [place], [place] [address] Osman Bravo MD [address] [place] [address] [address] [place] [address] documented as of this encounter Visit Diagnoses Not on filedocumented in this encounter Additional Health Concerns Infection Onset Date Last Indicated Resolved Time COVID-19 Rule Out 04/12/2024 04/16/2024 04/19/2024 12:32 AM HEAD DOFFER Assessment Noted Time PHQ-9 Depression Total Score: 4 04/30/19 2:57 PM CDT documented as of this encounter Care Teams Product Steward Relationship Specialty Start Date End Date Osman Bravo MD [address] [facility] [address] [place] [address] PCP - General INTERNAL MEDICINE 04/01/23 documented as of this encounter
--- OUTSIDE RECORDS SUMMARY | 2024-06-14 18:37 | XMS_ITS | Encounter Summary ---
Author Organization [facility] Address [facility] [place] [address] Care Team Providers Care Turret Lathe Operator Name Role Phone Osman Bravo MD Primary Care Provider [phone] Encounter Details Date Type Department Care Team (Late st Contact Info) Description 08/04/2023 [place] Message Enc [facility] [place] [address] [place] [address] [facility] Provider orders Social History Tobacco Use [...] Sex Assigned at Female 04/12/2024 3:26 PM MACHINE TOOL MECHANIC Legal Sex Female 11:31 AM MACHINE TOOL MECHANIC Gender Identity Female 04/12/2024 3:26 PM MACHINE TOOL MECHANIC Sexual Orientation Straight 04/12/2024 3: 26 PM MACHINE TOOL MECHANIC documented as of this encounter Plan of Treatment Upcoming Encounters Date Type Department Care Team (Late st Contact Info) Description 07/02/2024 12:40 PM CDT [facility] [address] [address] Osman Bravo MD [address] [place] [address] documented as of this encounter Visit Diagnoses Not on filedocumented in this encounter Additional Health Concerns Infection Onset Date Last Indicated Resolved Time COVID-19 Rule Out 04/12/2024 04/16/2024 04/19/2024 12:32 AM MACHINE TOOL MECHANIC Assessment Noted Time PHQ-9 Depression Total Score: 4 04/30/19 2:57 PM CDT documented as of this encounter Care Teams Turret Lathe Operator Relationship Specialty Start Date End Date Osman Bravo MD [address] [address] PCP - General INTERNAL MEDICINE 04/01/23 documented as of this encounter
[2024-06-14 18:59] LABS: Troponin I < 0.012 ng/mL (0.000-0.034)
--- NOTE | 2024-06-14 19:15 | PC.NURSE ---
no 3 hour ekg obtained, EDP DENIZ gomez aware.
== END 2024-06-14 19:44 | disposition home or self-care (01) ==
PROVIDERS: Emergency Medicine; Emergency Provider Physician Assistant; PCP Nurse Practitioner
DX: R07.89 Other chest pain (principal); Z87.440 Personal history of urinary (tract) infections; R00.0 Tachycardia, unspecified; R94.31 Abnormal electrocardiogram [ECG] [EKG]
CPT/HCPCS: 36415; 71046; 80053; 83690; 84484; 85025; 85380; 85610; 85730; 93005; 99284